=== PATIENT | male | born 1950 | race Caucasian/White ===

== ENCOUNTER 2022-06-01 16:03 | Inpatient (IN) | payer OTHER, MEDICARE, BC, SELFPAY ==
[2022-06-01] VITALS (8 sets, daily range): BP systolic 117–153; BP diastolic 63–98; PULSE 71–89; RESP 18–20; TEMP 36.3–37.4; O2SAT 95–97; BMI 27.6; BMI 28.3
--- NOTE | 2022-06-01 16:37 | CRLHL7_ITS ---
For Patients: As a result of the Cures Act, medical imaging exams and procedure reports are released immediately into your electronic medical record. You may view this report before your referring provider. If you have questions, please contact your health care provider. INDICATION: FALL HISTORY: Fall. COMPARISON: None. TECHNIQUE: AP radiograph of the pelvis, 2 views of the left hip. FINDINGS: There is an acute, subcapital, intracapsular fracture of the left proximal femur. No additional injury is identified. The symphysis pubis and superior/inferior pubic rami are intact. The right hip appears intact. Arcuate lines in the sacrum are intact. Pelvic phleboliths. No radiopaque foreign body. Normal bone mineralization. IMPRESSION: Acute, intracapsular, subcapital fracture of the left proximal femur. Dictated by Mango Pagan MD @ 06/01/2022 5:50:10 PM Dictated by: Mango Pagan MD @ 06/01/2022 17:50:18 (Electronically Signed)
--- NOTE | 2022-06-01 16:38 | ED_ITS ---
HPI - General Adult General Chief complaint: Hip Injury/Pain Stated complaint: Fell on Ice Time Seen by Provider: 06/01/22 16:31 History of Present Illness HPI narrative: This 72-year-old male slipped on ice and fell landing on his left hip. He has severe pain in his left hip that radiates into the groin. With great difficulty he was able to get up to a vehicle. He states that he did try to bear some weight on his left leg but it was very painful. He does not report any other injury. He denies having any headache, neck pain, or back pain. He does have some mild discomfort in his left shoulder. He is not on anticoagulants. He stated his last meal was 5 hours ago, at 11:45 a.m.. Related Data Home Medications Medication Instructions Recorded Confirmed fexofenadine 180 mg tablet mg 06/01/22 levothyroxine 100 mcg tablet mcg 06/01/22 omeprazole 20 mg capsule,delayed mg 06/01/22 release Allergies Allergy/AdvReac Type Severity Reaction Status Date / Time No Known Drug Allergies Allergy Verified 06/01/22 16:21 Review of Systems Status of ROS: Reports: 10 or more systems reviewed and unremarkable except as noted in History and below Narrative: Constitutional: No fevers, no weight gain or loss. Eyes: No discharge. No vision changes. HENT: No congestion, no sore throat, no ear pain. Cardiovascular: No chest pain, no palpitations. Respiratory: No shortness of breath, no wheezes, no cough. Gastrointestinal: No abdominal pain, no vomiting, no diarrhea. Genitourinary: No dysuria, no hematuria. Musculoskeletal: Left hip injury as described above. Skin: No rashes, no pruritis. Neurological: No dizziness, weakness, sensory change, speech change. Endo/Heme/Allergies: No bruising or bleeding. No polydipsia. Pysch: no suicidality, no anxiety, no insomnia. All other systems reviewed and are negative. PFSH PFSH Social History Smoking Status: Never smoker Do you use any of these nicotine containing products: None Second hand tobacco smoke exposure: No How often do you have a drink containing alcohol: 2-4 times a month How many standard drinks containing alcohol do you have on a typical day: 1 or 2 How often do you have six or more drinks on one occasion: Less than monthly AUDIT-C Alcohol total score: 3 Non-prescribed substance use: denies use service: No Exam Narrative: Exam Narrative: Constitutional: Well-developed, well-nourished, no acute distress. HEENT: Normocephalic, atraumatic. Neck: Normal range of motion. Nontender. Supple. Heart: Regular. No murmurs. Normal rate. Intact distal pulses. Lungs: Clear to auscultation. No chest discomfort. No wheezes, rhonchi, or rales. Abdomen: Normal bowel sounds. Nontender. No rebound tenderness. Genitalia: Deferred. Back: No midline tenderness. Normal range of motion. Extremities: The left leg is not shortened or or externally rotated. There is distinct severe pain with just slight log-rolling of the left leg. Skin: Intact. No rash. Warm. No erythema or pallor. Neurologic: No altered sensation. No weakness. Alert and oriented. Psychiatric: No suicidality. No anxiety or depression. No insomnia. Nursing notes and vitals signs are reviewed. Const: Vital Signs, click to edit/add: Vital Signs - 24 hr 06/01/22 16:22 Temperature 97.4 F L Pulse Rate [Right Pulse Oximeter] 80 Respiratory Rate 18 Blood Pressure [Ri ght Upper Arm] 153/98 H Pulse Oximetry 96 Oxygen Delivery Me thod Room Air Course Vital Signs Vital signs: Initial Vital Signs Temperature 97.4 F L 06/01/22 16:22 Temperature Source Temporal Artery Scan 06/01/22 16:22 Pulse Rate 80 06/01/22 16:22 Respiratory Rate 18 06/01/22 16:22 Blood Pressure 153/98 H 06/01/22 16:22 Blood Pressure Mean 116 06/01/22 16:22 Blood Pressure Position Sitting 06/01/22 16:22 Pulse Oximetry 96 06/01/22 16:22 Oxygen Delivery Method 06/01/22 16:22 Vital Signs Temperature 97.4 F L 06/01/22 16:22 Pulse Rate 80 06/01/22 16:22 Respiratory Rate 18 06/01/22 16:22 Blood Pressure 153/98 H 06/01/22 16:22 Pulse Oximetry 96 06/01/22 16:22 Oxygen Delivery Method 06/01/22 16:22 Temperature 97.4 F L 06/01/22 16:22 Pulse Rate 80 06/01/22 16:22 Respiratory Rate 18 06/01/22 16:22 Blood Pressure 153/98 H 06/01/22 16:22 Pulse Oximetry 96 06/01/22 16:22 Oxygen Delivery Method 06/01/22 16:22 Medical Decision Making MDM Narrative Medical decision making narrative: This patient comes in for an evaluation of his left hip from a fall that occurred just prior to arrival. An IV was established where he did receive Dilaudid 0.5 mg and Zofran 4 mg. X-ray imaging shows a fracture of the left hip. Chest x-ray and EKG for surgery planning returned with normal results. Patient received a 2nd dose of Dilaudid 0.5 mg. I did speak with the orthopedic physician's assistant to the dean account solutions analyst who states that they will surgically repair is hip tomorrow morning. I spoke with Dr. López about his admission into the hospital. At 6:20 p.m. he is accepted for admission by Dr. López. Lab Data Labs: Lab Results 06/01/22 06/01/22 Range/Units 16:25 16:25 WBC 5.84 (4.50-11.00) K/uL RBC 4.62 (4.30-5.90) m/uL Hgb 15.0 (13.5-17.5) gm/dL Hct 44.5 (37.0-53.0) % MCV 96 (80-100) fL MCH 33 (26-34) pg MCHC 34 (32-36) gm/dL RDW Coeff of Alyssa 11.8 (11.5-15.5) % Plt Count 236 (140-440) K/uL Neut % (Auto) 64.5 (42.0-72.0) % Lymph % (Auto) 25.3 (20-44) % [place] % (Auto) 6.8 (0.0-11.0) % Eos % (Auto) 1.7 (0.0-7.0) % Baso % (Auto) 0.3 (0.0-3.0) % Neut # (Auto) 3.76 (1.7-7.0) K/uL Lymph # (Auto) 1.48 (0.90-2.90) K/uL [place] # (Auto) 0.40 (0.00-0.90) K/UL Eos # (Auto) 0.10 (0.00-0.50) K/uL Baso # (Auto) 0.02 (0.00-0.30) K/uL Sodium 142 (135-149) mmol/L Potassium 4.0 (3.6-5.1) mmol/L Chloride 109 (96-114) mmol/L Carbon Dioxide 29 (20-32) mmol/L BUN 23 (7-30) mg/dL Creatinine 0.8 (0.5-1.5) mg/dL Estimated Creat Clear 72.16 Estimated GFR 95 ml/min Glucose 97 (60-115) mg/dL Calcium 8.8 (8.4-10.6) mg/dL Imaging Data XR L Hip: Radiologist's impression: Acute, intracapsular, subcapital fracture of the left proximal femur. Chest x-ray: Radiologist's impression: No acute cardiopulmonary findings. ECG Data Attestation: I personally reviewed and interpreted this ECG as follows: Interpretation: Normal sinus rhythm. Rate is 72 beats per minute. There are no ST or T-wave abnormalities. Discharge Plan Discharge Clinical Impression: Hip fracture Patient Disposition: Admitted As Inpatient Condition: Unchanged Prescriptions: No Action fexofenadine 180 mg tablet Label Comments: TAKE ONE TABLET BY MOUTH ONE TIME DAILY levothyroxine 100 mcg tablet Label Comments: TAKE ONE TABLET BY MOUTH ONE TIME DAILY omeprazole 20 mg capsule,delayed release(DR/EC) Label Comments: TAKE ONE CAPSULE BY MOUTH ONE TIME DAILY BEFORE MEALS Follow Up/Referrals: Spenser Bales MD [Primary Care Provider] -
[2022-06-01] MEDS: ONDANSETRON 2 MG/ML inj 4 MG IVP (16:44)
[2022-06-01 16:46] LABS: Basophils Absolute Auto 0.02 K/uL (0.00-0.30); Basophils Percent Auto 0.3 % (0.0-3.0); Eosinophils Percent Auto 1.7 % (0.0-7.0); Hematocrit 44.5 % (37.0-53.0); Immature Granulocytes Abs Auto 0.08 K/uL (0.00-0.30); Immature Granulocytes Pct Auto 1.4 %; Lymphocytes Absolute Auto 1.48 K/uL (0.90-2.90); Lymphocytes Percent Auto 25.3 % (20-44); Mean Corpuscular HGB Conc 34 gm/dL (32-36); Mean Corpuscular Hemoglobin 33 pg (26-34); Mean Corpuscular Volume 96 fL (80-100); Monocytes Percent Auto 6.8 % (0.0-11.0); Neutrophils Absolute Auto 3.76 K/uL (1.7-7.0); Neutrophils Percent Auto 64.5 % (42.0-72.0); Platelet Count* 236 K/uL (140-440); RDW Coefficient of Variation % 11.8 % (11.5-15.5); Red Blood Count 4.62 m/uL (4.30-5.90); White Blood Count* 5.84 K/uL (4.50-11.00)
[2022-06-01] MEDS: HYDROmorphone 0.5 mg/0.5 ml inj IVP ×2 (16:46→18:00)
[2022-06-01 16:54] LABS: Slide Review Reflex No
[2022-06-01 16:58] LABS: Chloride* 109 mmol/L (96-114); Sodium* 142 mmol/L (135-149)
[2022-06-01 17:01] LABS: Creatinine* 0.8 mg/dL (0.5-1.5); Est. Creatinine Clearance* 72.16; Estimated Glomerular Filt Rate 95 ml/min
[2022-06-01 17:02] LABS: Blood Urea Nitrogen* 23 mg/dL (7-30); Calcium* 8.8 mg/dL (8.4-10.6); Carbon Dioxide* 29 mmol/L (20-32); Glucose* 97 mg/dL (60-115)
--- NOTE | 2022-06-01 17:34 | CRLHL7_ITS ---
For Patients: As a result of the Cures Act, medical imaging exams and procedure reports are released immediately into your electronic medical record. You may view this report before your referring provider. If you have questions, please contact your health care provider. INDICATION: Fall. TECHNIQUE: Portable AP chest radiograph. COMPARISON: None available. FINDINGS: No focal pulmonary opacity, pneumothorax, or pleural effusion. Normal cardiac size. Mild thoracic aortic tortuosity. IMPRESSION: No acute cardiopulmonary findings. Dictated by Demetri Dunbar MD @ 06/01/2022 5:57:34 PM Dictated by: Demetri Dunbar MD @ 06/01/2022 17:57:37 (Electronically Signed)
--- NOTE | 2022-06-01 18:48 | ED.NURSE ---
report was given to tc marvin. will go to 251 via cart. will await covid result.
[2022-06-01] MEDS: HYDROmorphone 0.5 mg/0.5 ml inj 1 MG IVP (19:18)
[2022-06-01 19:21] LABS: SARS PCR* Negative SARS-CoV-2 (Negative)
--- NOTE | 2022-06-01 19:27 | ED.NURSE ---
Pt brought to [facility] by [facility] via cart with belongings. Pain controlled at this time.
--- NOTE | 2022-06-01 19:37 | W.PC.EDHO ---
Primary Language: Preferred Language: Orientation Status: [] Alert & Oriented [] Slight Confusion [] Known Dx Dementia Transfers By: [] Assist of 1 [] Assist of 2 [] Lift Active Medications Generic Name Dose Route Start Last Admin Trade Name Freq PRN Reason Stop Dose Admin Hydromorphone HCl 0.5 mg 06/01/22 17:56 06/01/22 18:00 Hydromorphone 0.5 Mg/0.5 Ml Inj IVP 06/01/22 17:57 0.5 mg ONCE ONE Administration Hydromorphone HCl 1 mg 06/01/22 19:11 06/01/22 19:18 Hydromorphone 0.5 Mg/0.5 Ml Inj IVP 06/01/22 19:12 1 mg ONCE ONE Administration Discontinued Medications Generic Name Dose Route Start Last Admin Trade Name Freq PRN Reason Stop Dose Admin Hydromorphone HCl 0.5 mg 06/01/22 16:36 06/01/22 16:46 Hydromorphone 0.5 Mg/0.5 Ml Inj IVP 06/01/22 16:37 0.5 mg ONCE ONE Administration Ondansetron HCl 4 mg 06/01/22 16:36 06/01/22 16:44 Ondansetron 2 Mg/Ml Inj IVP 06/01/22 16:37 4 mg ONCE ONE Administration Description of Symptoms ED Triage Present Problem pt fell in parking lot on the way out to his Description vehicle at [facility], was able to get himself into his truck and drive here, pain in left buttock down to below left knee, did hit his head but denies loc, no thinners ED Triage Date of Onset of 06/01/22 Symptoms Pain Pain Description [Left Leg] Sharp Pain Intensity [Left Leg] 10 Pain Intensity 8 Pain Intensity 8 Pain Intensity 8 Pain Intensity 8 Pain Intensity 8 Pain Scale Used [Left Leg] Numeric (1 - 10) Pain Scale Used Numeric (1 - 10) Pain Scale Used Numeric (1 - 10) IV Insertion/Site Date of IV Line Insertion [ 06/01/22 Left Antecubital] Oxygen Administration Pulse Oximetry 97 Pulse Oximetry 96 Pulse Oximetry 95 Pulse Oximetry 96 Pulse Oximetry 95 Pulse Oximetry 97 Pulse Oximetry 96 Oxygen Delivery Method Room Air Oxygen Delivery Method Room Air Oxygen Delivery Method Room Air Oxygen Delivery Method Room Air Oxygen Delivery Method Room Air Cardiac Monitoring EKG Method 12 Lead
--- NOTE | 2022-06-01 21:59 | PM.IMHP1 ---
Hospitalist- H&P: HPI History of Present Illness Time Seen by Provider: 21:30 Date Seen: 06/01/22 Chief complaint: Left hip/groin pain status post fall on ice Narrative: Sergio Reyes is a 72 year old man presents for assessment of left hip and groin pain status post fall on ice today. After fall was able to get up into a vehicle. It was excruciatingly painful. Pain worse with weight-bearing. No other injury. No loss of consciousness. In the [facility] an x-ray of the pelvis and left hip demonstrates an acute intracapsular subcapital fracture of the left proximal femur. Discussions were held with the orthopedic surgery staff on-call. They intend on performing a consultation with him tomorrow morning and likely bring him to the operating room with the patient is agreeable. As such she is admitted to the hospital for pain management and preparation for surgery. Review of Systems Status of ROS: Reports: 10 or more systems reviewed and unremarkable except as noted in History and below Narrative: Generally healthy. Active. No limitations. Denies chest heaviness, pressure, tightness, or pain. Denies dyspnea at rest, paroxysmal nocturnal dyspnea, orthopnea. Denies dyspnea with exertion. Denies syncope or near-syncope. Denies palpitations or fluttering. Denies dependent edema. Denies nausea or vomiting. Denies abdominal pain. Bowel and bladder habits are satisfactory. No concerns. Denies dysuria, urgency, frequency, hematuria. Denies diarrhea or constipation. No focal motor neurologic deficits. Independent in all activities. No fevers, rigors, diaphoresis. Denies polyuria, polydipsia, polyphagia. Denies night sweats. Denies weight loss. Denies weight gain. Denies heat or cold intolerance. No recent major travel, or any other trauma or injury aside from what is specified above. Denies blood loss of any sort. Has tolerated multiple surgical procedures in the past without any complications. No history of venous thromboembolism. No bleeding dyscrasias. Denies family history of the same. Requests full resuscitation in the event of cardiopulmonary demise. Designates his as his primary power of bowl sander should that be required. Dr. Spenser Bales is his primary care physician. [facility] Medical History (Updated 06/01/22 @ 22:11 by Gael López MD) Adenomatous colon polyp Gomez's esophagus Benign prostatic hyperplasia Essential hypertension Gastroesophageal reflux disease Herniation of intervertebral disc between L4 and L5 Herniation of intervertebral disc between L5 and S1 Migraine Mixed hyperlipidemia Muscle spasm Prediabetes Primary hypothyroidism Seasonal allergies Surgical History History of colonoscopy History of esophagogastroduodenoscopy (EGD) History of left inguinal hernia repair History of umbilical hernia repair Status post appendectomy Status post bilateral cataract extraction Status post laminectomy Status post Mohs surgery Status post right rotator cuff repair Status post transurethral resection of prostate Family History Mother CHF (congestive heart failure) Grandfather Diabetes Grandmother Diabetes Social History Smoking Status: Never smoker Do you use any of these nicotine containing products: None Second hand tobacco smoke exposure: No How often do you have a drink containing alcohol: 2-4 times a month How many standard drinks containing alcohol do you have on a typical day: 1 or 2 How often do you have six or more drinks on one occasion: Less than monthly AUDIT-C Alcohol total score: 3 Non-prescribed substance use: denies use service: No Meds Home Medications and Allergies Home Medications Medication Instructions Recorded Confirmed Type fexofenadine 180 mg tablet mg 06/01/22 History levothyroxine 100 mcg tablet mcg 06/01/22 History omeprazole 20 mg capsule,delayed mg 06/01/22 History release Allergies Allergy/AdvReac Type Severity Reaction Status Date / Time No Known Drug Allergies Allergy Verified 06/01/22 16:21 Exam Narrative: Exam Narrative: Appears uncomfortable. Cooperative and friendly. Articulate. Mood and affect are congruent. Alert, oriented to self, place, time, situation. Vision and hearing are grossly normal. Midline nasal septum. Dentition in good repair. Buccal mucosa is moist. Neck is supple. Midline trachea. Normal thyroid. No lymphedema. Lungs are clear to auscultation without wheezing, rhonchi, or rales. No CVA tenderness. Heart tones with regular rhythm, normal S1-S2, without murmur, gallop, or rub. Abdomen with active bowel sounds, soft, nontender. Extremities without edema. Good capillary refill upper and lower extremities. No obvious shortening or rotation of affected left lower extremity compared to the right. Skin is warm, dry, intact. Const: Vital Signs, click to edit/add: Vital Signs - 24 hr 06/01/22 16:22 06/01/22 16:40 06/01/22 17:00 Temperature 97.4 F L Pulse Rate [Right Pulse Oximeter] 80 72 75 Respiratory Rate 18 Blood Pressure [Ri ght Upper Arm] 153/98 H 139/95 H 122/83 Pulse Oximetry 96 97 95 Oxygen Delivery Me thod Room Air Room Air 06/01/22 19:00 06/01/22 18:03 06/01/22 18:30 Temperature Pulse Rate [Right Pulse Oximeter] 78 74 71 Respiratory Rate Blood Pressure [Ri ght Upper Arm] 136/83 131/79 Pulse Oximetry 96 96 95 Oxygen Delivery Tx thod Room Air Room Air 06/01/22 19:00 Temperature Pulse Rate [Right Pulse Oximeter] 87 Respiratory Rate Blood Pressure [Ri ght Upper Arm] 117/90 H Pulse Oximetry 97 Oxygen Delivery Tx thod Room Air Hospitalist - H&P: Result Labs Labs: Short CBC 06/01/22 Range/Units 16:25 WBC 5.84 (4.50-11.00) K/uL Hgb 15.0 (13.5-17.5) gm/dL Hct 44.5 (37.0-53.0) % Plt Count 236 (140-440) K/uL BMP 06/01/22 16:25 Sodium 142 Potassium 4.0 Chloride 109 Carbon Dioxide 29 BUN 23 Creatinine 0.8 Glucose 97 Calcium 8.8 ECG Attestation: I personally reviewed and interpreted this ECG as follows: ECG interpretation date: 06/01/22 ECG interpretation time: 21:30 Prior ECG tracings: not available for review Interpretation: Normal sinus rhythm. No obvious ischemia or infarction pattern. Imaging X-ray of pelvis and left hip: Attestation: I have reviewed the pertinent imaging results. Radiologist's impression: Acute, intracapsular, subcapital fracture of the left proximal femur. Assessment and Plan Assessment and plan (1) Hip fracture: Problem comment: 06/01/2022: Acute, intracapsular, subcapital fracture of the left proximal femur Status: Acute (2) Muscle spasm: Status: Acute (3) Gastroesophageal reflux disease: Status: Acute (4) Gomez's esophagus: Status: Acute Plan 1. Reviewed impression with patient and his . Answered their questions. 2. NPO after midnight. Orthopedic surgery consultation tomorrow morning. I anticipate surgical repair tomorrow. 3. Analgesia and antiemetics as needed. 4. Maintenance IV fluids after midnight tonight. 5. Recheck labs in the morning. 6. No medical contraindication for surgery. 7. Mechanical venous thromboembolism prophylaxis preoperatively. Postoperatively will benefit from pharmacologic venous thromboembolism prophylaxis. 8. Perioperative antibiotic prophylaxis per Orthopedic surgery. 9. Physical and occupational therapy consultation to assess and treat. 10. Continue with other supportive medications. 11. Consider osteoporosis assessment and management in the outpatient setting with his primary care physician. 12. Patient and agreeable to above stated plans and recommendations.
[2022-06-01] MEDS: ACETAMINOPHEN 325 MG TABLET 650 MG PO (22:15)
[2022-06-01] MEDS: MORPHINE 4 MG/ML INJ IVP (22:16)
[2022-06-01] MEDS: OXYCODONE 5 MG TABLET PO (22:16)
[2022-06-01] MEDS: LACTATED RINGERS 1000 ML 1,000 ML 75 ML IV (23:05)
--- NOTE | 2022-06-01 23:30 | PC.NURSE ---
Patient to floor at 1930. Pleasant and cooperative. Christine at bedside and supportive. PRN medication for pain control. Tylenol administered for headache. NPO after midnight for surgery in the morning. Tolerating bedrest. Denies N/V, SOB, chest pain.
[2022-06-02] VITALS (34 sets, daily range): BP systolic 103–158; BP diastolic 42–96; PULSE 59–80; RESP 16–20; TEMP 36.2–37.2; O2SAT 81–100
[2022-06-02 00:30] LABS: Appearance Urine Cloudy (Clear); Bilirubin Urine Negative (Negative); Blood Urine 3+ (Negative); Color Urine Yellow (Yellow); Glucose Urine Negative (Negative); Ketones Urine Negative (Negative); Leukocyte Esterase Urine Negative (Negative); Nitrite Urine Negative (Negative); Protein Urine 1+ (Negative); Urobilinogen Urine 0.2 (0.2-1.0)
[2022-06-02 00:37] LABS: Bacteria Urine Few; RBC Urine 25-50 (0-2); Squamous Epithelial Cell Urine Few (None-Few)
[2022-06-02] MEDS: OXYCODONE 5 MG TABLET PO ×5 (03:40→21:10)
[2022-06-02] MEDS: OMEPRAZOLE 20 MG CAPSULE DR PO (06:46)
[2022-06-02] MEDS: LEVOTHYROXINE 100 MCG TABLET PO (06:46)
[2022-06-02 06:56] LABS: HCO3 VBG 29 mmol/L (21-28); Lactate* 0.7 mmol/L (0.5-1.9); PCO2 VBG 44 mmHG (40-50); PO2 VBG 38.3 mmHG (25-47); pH VBG 7.421 (7.32-7.43)
[2022-06-02 07:04] LABS: Hematocrit 40.4 % (37.0-53.0); Hemoglobin* 13.7 gm/dL (13.5-17.5); Mean Corpuscular HGB Conc 34 gm/dL (32-36); Mean Corpuscular Hemoglobin 33 pg (26-34); Mean Corpuscular Volume 96 fL (80-100); Platelet Count* 189 K/uL (140-440); White Blood Count* 9.03 K/uL (4.50-11.00)
[2022-06-02 07:05] LABS: Slide Review Reflex No
[2022-06-02 07:18] LABS: Chloride* 107 mmol/L (96-114); Sodium* 137 mmol/L (135-149)
[2022-06-02 07:19] LABS: Potassium* 4.1 mmol/L (3.6-5.1)
[2022-06-02 07:21] LABS: Carbon Dioxide* 28 mmol/L (20-32); Creatinine* 0.8 mg/dL (0.5-1.5); Est. Creatinine Clearance* 74.37; Estimated Glomerular Filt Rate 95 ml/min
[2022-06-02 07:22] LABS: Blood Urea Nitrogen* 23 mg/dL (7-30); Calcium* 8.5 mg/dL (8.4-10.6); Glucose* 106 mg/dL (60-115)
--- NOTE | 2022-06-02 07:27 | PC.NURSE ---
23-: pleasant and cooperative. Pt in bed throughout shift. c/o pain /, Oxy given. NPO since midnight. Assisted Nata SOTO with delacruz placement. Sm blood clots noted in urine. Delacruz patent and draining.
[2022-06-02] MEDS: ONDANSETRON 2 MG/ML inj 4 MG IVP (08:01)
--- NOTE | 2022-06-02 08:17 | CRLHL7_ITS ---
For Patients: As a result of the Century Cures Act, medical imaging exams and procedure reports are released immediately into your electronic medical record. You may view this report before your referring provider. If you have questions, please contact your health care provider. INDICATION: Injury COMPARISON: July 20, 2012 TECHNIQUE: CT examination of the head was performed as axial sections without intravenous contrast. Images were obtained from the vertex of the skull through the skull base. Please note that all CT scans at this facility use dose modulation, iterative reconstruction, and/or weight-based dosing when appropriate to reduce radiation dose to as low as reasonably achievable. FINDINGS: The brain shows no sign of mass lesion, mass effect, hemorrhage, or edema. The ventricles and sulci are normal in appearance for the patient`s age. The visualized portions of the orbits are normal in appearance. The osseous structures are normal in their appearance with no sign of abnormality in the skull base or calvarium. IMPRESSION: No acute intracranial posttraumatic finding. Please note that all CT scans at this facility use dose modulation, iterative reconstruction, and/or weight-based dosing when appropriate to reduce radiation dose to as low as reasonably achievable. Dictated by Madan Snyder MD @ 06/02/2022 8:56:20 AM (Electronically Signed)
--- NOTE | 2022-06-02 10:45 | CRLHL7_ITS ---
For Patients: As a result of the Cures Act, medical imaging exams and procedure reports are released immediately into your electronic medical record. You may view this report before your referring provider. If you have questions, please contact your health care provider. INDICATION: Postop left hip. COMPARISON: Pelvis and left hip June 01, 2022. TECHNIQUE: Intraoperative fluoroscopic spot films left hip. FINDINGS: Internal fixation of the fracture of the left femoral neck with 3 Saldana pins. Dictated by Ez Tracy MD @ 06/02/2022 12:07:18 PM (Electronically Signed)
--- NOTE | 2022-06-02 12:04 | P.ORCN_ITS ---
History of Present Illness HPI Date Seen: 06/02/22 Requesting physician: Gael López Chief complaint: Left hip/groin pain status post fall on ice Narrative: The patient is a 72-year-old community ambulator without assist. He fell sustaining a minimally displaced left femoral neck fracture. He has never injured this hip or had surgery previously. He does not have diabetes, does not smoke cigarettes and is not on blood thinners. Review of Systems Narrative: The patient denies: Fever, night sweats, shaking chills, nausea, vomiting, diarrhea, chest pain, chest pressure, shortness of breath, no rash, no change in hearing or vision, no issues with bleeding or clotting PFSH [facility] Medical History Adenomatous colon polyp Gomez's esophagus Benign prostatic hyperplasia Essential hypertension Gastroesophageal reflux disease Herniation of intervertebral disc between L4 and L5 Herniation of intervertebral disc between L5 and S1 Migraine Mixed hyperlipidemia Muscle spasm Prediabetes Primary hypothyroidism Seasonal allergies Surgical History History of colonoscopy History of esophagogastroduodenoscopy (EGD) History of left inguinal hernia repair History of umbilical hernia repair Status post appendectomy Status post bilateral cataract extraction Status post laminectomy Status post Mohs surgery Status post right rotator cuff repair Status post transurethral resection of prostate Family History Mother CHF (congestive heart failure) Grandfather Diabetes Grandmother Diabetes Social History Highest level of school completed/degree received: some college, no degree Smoking Status: Never smoker Do you use any of these nicotine containing products: None Second hand tobacco smoke exposure: No How often do you have a drink containing alcohol: 2-4 times a month Alcohol type: hard liquor How many standard drinks containing alcohol do you have on a typical day: 1 or 2 How often do you have six or more drinks on one occasion: Never AUDIT-C Alcohol total score: 2 Non-prescribed substance use: denies use Caffeine: No service: No Meds Home Medications and Allergies Home Medications Medication Instructions Recorded Confirmed Type fexofenadine 180 mg tablet 180 mg PO DAILY 06/01/22 06/02/22 History levothyroxine 100 mcg tablet 100 mcg PO DAILY 06/01/22 06/02/22 History omeprazole 20 mg capsule,delayed 20 mg PO DAILY 06/01/22 06/02/22 History release tizanidine 4 mg tablet 4 mg PO Q8H PRN 06/02/22 06/02/22 History Allergies Allergy/AdvReac Type Severity Reaction Status Date / Time No Known Drug Allergies Allergy Verified 06/01/22 16:21 Ortho Exam Narrative Exam Narrative: The patient is examined supine in the hospital bed. The skin about the hip is intact, no surgical scars no ecchymosis. CMS to the foot is normal. Const Vital Signs, click to edit/add: Vital Signs - 24 hr 06/01/22 16:22 06/01/22 16:40 06/01/22 17:00 Temperature 97.4 F L Pulse Rate [Left] Pulse Rate [Pulse Oximeter] Pulse Rate [Right Pulse Oximeter] 80 72 75 Respiratory Rate 18 Blood Pressure [Right Arm] Blood Pressure [Right Upper Arm] 153/98 H 139/95 H 122/83 Pulse Oximetry 96 97 95 Oxygen Delivery Method Room Air Room Air 06/01/22 19:00 06/01/22 18:03 06/01/22 18:30 Temperature Pulse Rate [Left] Pulse Rate [Pulse Oximeter] Pulse Rate [Right Pulse Oximeter] 78 74 71 Respiratory Rate Blood Pressure [Right Arm] Blood Pressure [Right Upper Arm] 136/83 131/79 Pulse Oximetry 96 96 95 Oxygen Delivery Method Room Air Room Air 06/01/22 19:00 06/01/22 19:42 06/01/22 19:42 Temperature 98.9 F Pulse Rate [Left] 89 Pulse Rate [Pulse Oximeter] Pulse Rate [Right Pulse Oximeter] 87 Respiratory Rate 20 20 Blood Pressure [Right Arm] 129/63 Blood Pressure [Right Upper Arm] 117/90 H Pulse Oximetry 97 95 95 Oxygen Delivery Method Room Air Room Air Room Air 06/01/22 23:00 06/01/22 23:00 06/01/22 23:00 Temperature 99.3 F Pulse Rate [Left] 85 Pulse Rate [Pulse Oximeter] 85 Pulse Rate [Right Pulse Oximeter] Respiratory Rate 20 20 20 Blood Pressure [Right Arm] 121/73 Blood Pressure [Right Upper Arm] Pulse Oximetry 95 95 Oxygen Delivery Method Room Air Room Air 06/02/22 03:00 06/02/22 07:52 06/02/22 08:04 Temperature 97.9 F 98.9 F Pulse Rate [Left] 77 Pulse Rate [Pulse Oximeter] 66 77 Pulse Rate [Right Pulse Oximeter] Respiratory Rate 20 16 Blood Pressure [Right Arm] 120/81 127/68 Blood Pressure [Right Upper Arm] Pulse Oximetry 96 95 95 Oxygen Delivery Method Room Air Room Air Room Air Results Labs Labs: Laboratory Results - last 48 hr 06/01/22 06/01/22 06/01/22 16:25 16:25 18:06 WBC 5.84 RBC 4.62 Hgb 15.0 Hct 44.5 MCV 96 MCH 33 MCHC 34 RDW Coeff of Alyssa 11.8 Plt Count 236 Neut % (Auto) 64.5 Lymph % (Auto) 25.3 [place] % (Auto) 6.8 Eos % (Auto) 1.7 Baso % (Auto) 0.3 Neut # (Auto) 3.76 Lymph # (Auto) 1.48 [place] # (Auto) 0.40 Eos # (Auto) 0.10 Baso # (Auto) 0.02 VBG pH VBG pCO2 VBG pO2 VBG HCO3 Sodium 142 Potassium 4.0 Chloride 109 Carbon Dioxide 29 BUN 23 Creatinine 0.8 Estimated Creat Clear 72.16 Estimated GFR 95 Glucose 97 Lactate Calcium 8.8 Urine Color Urine Appearance Urine pH Ur Specific [place] Urine Protein Urine Glucose (UA) Urine Ketones Urine Blood Urine Nitrite Urine Bilirubin Urine Urobilinogen Ur Leukocyte Esterase Urine RBC Urine WBC Ur Squamous Epith Cells Urine Bacteria SARS-CoV-2 (PCR) Negative SARS-CoV-2 06/02/22 06/02/22 06/02/22 00:15 05:49 05:49 WBC 9.03 RBC 4.20 L Hgb 13.7 Hct 40.4 MCV 96 MCH 33 MCHC 34 RDW Coeff of Alyssa Plt Count 189 Neut % (Auto) Lymph % (Auto) [place] % (Auto) Eos % (Auto) Baso % (Auto) Neut # (Auto) Lymph # (Auto) [place] # (Auto) Eos # (Auto) Baso # (Auto) VBG pH VBG pCO2 VBG pO2 VBG HCO3 Sodium 137 Potassium 4.1 Chloride 107 Carbon Dioxide 28 BUN 23 Creatinine 0.8 Estimated Creat Clear 74.37 Estimated GFR 95 Glucose 106 Lactate Calcium 8.5 Urine Color Yellow Urine Appearance Cloudy A Urine pH 7.0 Ur Specific [place] 1.020 Urine Protein 1+ A Urine Glucose (UA) Negative Urine Ketones Negative Urine Blood 3+ A Urine Nitrite Negative Urine Bilirubin Negative Urine Urobilinogen 0.2 Ur Leukocyte Esterase Negative Urine RBC 25-50 A Urine WBC 2-5 Ur Squamous Epith Cells Few Urine Bacteria Few A SARS-CoV-2 (PCR) 06/02/22 05:49 WBC RBC Hgb Hct MCV MCH MCHC RDW Coeff of Alyssa Plt Count Neut % (Auto) Lymph % (Auto) [place] % (Auto) Eos % (Auto) Baso % (Auto) Neut # (Auto) Lymph # (Auto) [place] # (Auto) Eos # (Auto) Baso # (Auto) VBG pH 7.421 VBG pCO2 44 VBG pO2 38.3 VBG HCO3 29 H Sodium Potassium Chloride Carbon Dioxide BUN Creatinine Estimated Creat Clear Estimated GFR Glucose Lactate 0.7 Calcium Urine Color Urine Appearance Urine pH Ur Specific [place] Urine Protein Urine Glucose (UA) Urine Ketones Urine Blood Urine Nitrite Urine Bilirubin Urine Urobilinogen Ur Leukocyte Esterase Urine RBC Urine WBC Ur Squamous Epith Cells Urine Bacteria SARS-CoV-2 (PCR) Diagnostic results Additional Comments: An AP pelvis, AP and cross-table lateral view of the left hip show a minimally displaced left femoral neck fracture. There is no obvious pathologic lesion, no pre-existing hip joint arthritis. Assessment and Plan Assessment and plan (1) Hip fracture: Problem comment: 06/01/2022: Acute, intracapsular, subcapital fracture of the left proximal femur Status: Acute Total time spent: Total time spent is greater than 50% in coordination of care (as documented) at patient's floor/unit and/or counseling patient: (2) Muscle spasm: Status: Acute Total time spent: Total time spent is greater than 50% in coordination of care (as documented) at patient's floor/unit and/or counseling patient: (3) Gastroesophageal reflux disease: Status: Acute Total time spent: Total time spent is greater than 50% in coordination of care (as documented) at patient's floor/unit and/or counseling patient: (4) Gomez's esophagus: Status: Acute Total time spent: Total time spent is greater than 50% in coordination of care (as documented) at patient's floor/unit and/or counseling patient: Plan Assessment: Minimally displaced left femoral neck fracture Plan: I told the patient that I think his injury is best treated with reduction and cannulated screw fixation. He has been medically cleared for surgery, therefore we will plan to take him to the operating room today.
--- NOTE | 2022-06-02 12:04 | P.ORPRC_ITS ---
Procedure Note Date of procedure: 06/02/22 Procedure: PREOPERATIVE DIAGNOSIS: Left hip nondisplaced femoral neck fracture POSTOPERATIVE DIAGNOSIS: Left hip nondisplaced femoral neck fracture NAME OF OPERATION: Left hip fracture ORIF SURGEON: Asif Almaguer MD FURNITURE SALES CONSULTANT: Nicki Coley PA-C IMPLANTS: Cannulated screws x3 ANESTHESIA: Spinal ESTIMATED BLOOD LOSS: 50 mL COMPLICATIONS: None SPECIMENS: None DRAINS: None PREOPERATIVE ANTIBIOTICS: Ancef 2 g INDICATIONS: The patient is a 72-year-old fell, sustaining a minimally displaced left femoral neck fracture. They were admitted for workup and care. They have been medically cleared for surgery. The risks, benefits and expected outcomes were discussed in detail. These included but were not limited to: Infection, bleeding, injury to blood vessel or nerve, venous thromboembolism. All questions were answered to their satisfaction. Use of an regulatory affairs assistant was necessary for patient positioning and safety, soft tissue retraction and closure, dressing application, and transfer of the patient to and from the hospital bed to the fracture table. PROCEDURE: Spinal anesthesia was administered. The patient was placed supine on the fracture table. The lower extremity was prepped and draped in the usual sterile fashion. Guide pin placement was estimated with the image intensifier. A lateral incision was made over the flare of the greater trochanter. Subcutaneous dissection was made with the Benson elevator to the lateral cortex of the femur. The bone hook was placed over the anterior aspect of the femoral neck. It was engaged along the calcar and lateral force was placed on the distal fragment. This allowed an anatomic reduction. Our starting point was identified with the image intensifier. An inferior guide pin was placed on the AP view, center of the femoral head on the lateral view. Its placement was confirmed on both views. Using a freehand technique, we placed an anterior pin in the superior position. Finally, we placed a 3rd guide pin posteriorly in the superior position. Lengths were measured. The lateral cortex was penetrated with the cannulated drill. We placed the inferior screw 1st, using a washer. This had excellent purchase. We placed the anterior, superior screw next with a washer. Again, this had excellent purchase. Finally, we placed the posterior, superior screw, without a washer. This had poor purchase, despite changing lengths. This construct was imaged with the C-arm and was felt to be well placed. The fracture fragments moved as a single unit with fluoroscopic rotation on both AP and lateral views. The wound was irrigated with normal saline. The IT band was closed with an 0 Vicryl in an interrupted [id number] fashion. The subcutaneous tissues were reapproximated with a 2-0 Vicryl. Skin was closed with a running 3-0 Monocryl in a subcuticular fashion and glue. A dry dressing was applied. Sponge and needle counts were correct x2. The patient tolerated the procedure well. There were no apparent complications. They were carefully transferred to the hospital bed and taken to the postanesthesia care unit in satisfactory condition. PLAN: The patient will be mobilized with physical therapy. They will be toe- touch weight-bearing on the left lower extremity. Sh Rel toe will be used for DVT prophylaxis. They will be discharged to home once medically appropriate.
--- NOTE | 2022-06-02 12:31 | W.ANESCHARGE ---
Anesthesia Charges Start Date/Time Anesthesia Start Date: 06/02/22 Anesthesia Start Time: 10:13 Stop Date/Time Anesthesia Stop Date: 06/02/22 Anesthesia Stop Time: 12:27 Summary Emergency: Yes Extremes of Age: Over 71-CPT [id number]
--- NOTE | 2022-06-02 13:00 | PC.NURSE ---
Patient returned from OR with chest discomfort. EKG completed. MD notified. Troponin ordered STAT. Will continue to monitor. Discomfort and tightness seemed to let up after 10 min of being back.
--- NOTE | 2022-06-02 13:08 | W.PM.NB ---
Nerve Block Nerve Block Time Seen by Provider: 10:00 Date Seen: 06/02/22 Type of block requested by surgeon for post-operative analgesia: NAE/LFCN Side: left Time out performed: Yes Verification of patient name: Yes Verification of date of : Yes Site marking: site marked Name of person performing procedure: Cesar Mancera Continuous monitoring Was continuous monitoring of O2 sat, B/P, monitoring specialist, recorded every 15 minutes?: Yes Procedure Checklist: sterile prep, needles and gloves Ultrasound guided. Images saved: Yes Medications given in 5ml increments after negative aspiration: Ropivicaine %: 0.5 mL: 30 Needle gauge: 20 Decadron (mg): 10 Precedex (mcg): 25 Patient tolerated procedure well: Yes Additional comments: Injected in 5ml increments after negative aspiration. Block Charges Block Charge (with Pro Fee): Other Periph Nerve Block Use of Ultrasound Machine for Block: Yes- US Guidance/pain block
[2022-06-02 14:27] LABS: Troponin I* 0.01 ng/mL (0.01-0.04)
--- NOTE | 2022-06-02 14:42 | PC.NURSE ---
end of shift note: Patient complained of head and left shoulder pain prior to being seen by ortho. MD ordered STAT head CT and this was reassuring. No signs of fracture in shoulder. Patient went to OR today around 1045. Returned to floor at 1300. Hip/Femur fracture was fixed in OR. Received a block post surgery in OR room. Patient did complain of chest discomfort and tightness when he got back to floor. MD was notified and EKG and troponin were completed. All was reassuring and symptoms resolved after 10 min. Has one incision on left thigh and this is dry and intact. Ice pack to incision. Patient is still unable to move left lower extremity. Does have some feeling it in. Denies pain. Lung sounds clear. Bowel sounds active. Denies nausea. TEDs and SCDs present. PIV intact and patent. LR running at 75ml/hr. Alert and oriented. Will be non weight bearing on left leg for 6 weeks. Patient aware. Tolerating a regular diet.
--- NOTE | 2022-06-02 15:53 | P.IMPN_ITS ---
Progress Note: A&P Assessment and plan (1) Hip fracture: Problem details: - 06/01/22: Acute, intracapsular, subcapital fracture of the left proximal femur - s/p ORIF 06/02/22 Status: Acute (2) Gastroesophageal reflux disease: Problem details: - continue home PPI Status: Acute (3) Gomez's esophagus: Status: Acute Plan - pain management and ppx per Orthopedic surgery team - continue home medications for comorbidities Subjective Date Seen: 06/02/22 Interval history: Jong is a pleasant 72-year-old male who was admitted to the hospital on 06/01 for left hip fracture after a mechanical fall leaving work yesterday. This morning, he notes a mild headache preoperatively. He did hit his head and is on sure if he lost consciousness. We obtained a head CT prior to his hip surgery, this was negative for acute findings. There were no anesthetic or surgical complications during patient's L hip ORIF. Upon arrival to the floor postoperatively, he had a self-limited episode of left-sided chest pain. EKG revealed no acute findings and troponin was negative. Exam Narrative: Exam Narrative: GEN: Alert and oriented, nontoxic in appearance HEENT: Normal external ears, PERRL and EOMIs bilaterally, no scleral icterus CV: RRR, No concerning murmurs, rubs, or gallops R: LCTA bilaterally without concerning wheezing, rales, or rhonchi, air movement adequate Skin: No concerning skin lesions or rashes on exposed skin Neuro: No focal deficits, no resting tremor, no facial droop, no pronator drift Psych: Appropriate Const: Vital Signs, click to edit/add: Vital Signs - 24 hr 06/01/22 16:22 06/01/22 16:40 06/01/22 17:00 Temperature 97.4 F L Pulse Rate Pulse Rate [Left] Pulse Rate [Pulse Oximeter] Pulse Rate [Right Pulse Oximeter] 80 72 75 Respiratory Rate 18 Blood Pressure Blood Pressure [Ri ght Arm] Blood Pressure [Ri ght Upper Arm] 153/98 H 139/95 H 122/83 Pulse Oximetry 96 97 95 Oxygen Delivery Me thod Room Air Room Air Oxygen Flow Rate 06/01/22 19:00 06/01/22 18:03 06/01/22 18:30 Temperature Pulse Rate Pulse Rate [Left] Pulse Rate [Pulse Oximeter] Pulse Rate [Right Pulse Oximeter] 78 74 71 Respiratory Rate Blood Pressure Blood Pressure [Ri ght Arm] Blood Pressure [Ri ght Upper Arm] 136/83 131/79 Pulse Oximetry 96 96 95 Oxygen Delivery Me thod Room Air Room Air Oxygen Flow Rate 06/01/22 19:00 06/01/22 19:42 06/01/22 19:42 Temperature 98.9 F Pulse Rate Pulse Rate [Left] 89 Pulse Rate [Pulse Oximeter] Pulse Rate [Right Pulse Oximeter] 87 Respiratory Rate 20 20 Blood Pressure Blood Pressure [Ri ght Arm] 129/63 Blood Pressure [Ri ght Upper Arm] 117/90 H Pulse Oximetry 97 95 95 Oxygen Delivery Me thod Room Air Room Air Room Air Oxygen Flow Rate 06/01/22 23:00 06/01/22 23:00 06/01/22 23:00 Temperature 99.3 F Pulse Rate Pulse Rate [Left] 85 Pulse Rate [Pulse Oximeter] 85 Pulse Rate [Right Pulse Oximeter] Respiratory Rate 20 20 20 Blood Pressure Blood Pressure [Ri ght Arm] 121/73 Blood Pressure [Ri ght Upper Arm] Pulse Oximetry 95 95 Oxygen Delivery Me thod Room Air Room Air Oxygen Flow Rate 06/02/22 03:00 06/02/22 07:52 06/02/22 08:04 Temperature 97.9 F 98.9 F Pulse Rate Pulse Rate [Left] 77 Pulse Rate [Pulse Oximeter] 66 77 Pulse Rate [Right Pulse Oximeter] Respiratory Rate 20 16 Blood Pressure Blood Pressure [Ri ght Arm] 120/81 127/68 Blood Pressure [Ri ght Upper Arm] Pulse Oximetry 96 95 95 Oxygen Delivery Me thod Room Air Room Air Room Air Oxygen Flow Rate 06/02/22 12:36 06/02/22 12:54 06/02/22 12:25 Temperature 98.9 F 98.2 F Pulse Rate 64 72 Pulse Rate [Left] Pulse Rate [Pulse Oximeter] Pulse Rate [Right Pulse Oximeter] Respiratory Rate Blood Pressure Blood Pressure [Ri ght Arm] Blood Pressure [Ri ght Upper Arm] Pulse Oximetry 100 89 Oxygen Delivery Me thod Nasal Cannula Room Air Oxygen Flow Rate 3 06/02/22 12:26 06/02/22 12:27 06/02/22 12:28 Temperature Pulse Rate 68 66 66 Pulse Rate [Left] Pulse Rate [Pulse Oximeter] Pulse Rate [Right Pulse Oximeter] Respiratory Rate Blood Pressure 106/63 103/60 Blood Pressure [Ri ght Arm] Blood Pressure [Ri ght Upper Arm] Pulse Oximetry 92 93 91 Oxygen Delivery Me thod Oxygen Flow Rate 06/02/22 12:30 06/02/22 12:32 06/02/22 12:33 Temperature Pulse Rate 63 72 60 Pulse Rate [Left] Pulse Rate [Pulse Oximeter] Pulse Rate [Right Pulse Oximeter] Respiratory Rate Blood Pressure 104/62 Blood Pressure [Ri ght Arm] Blood Pressure [Ri ght Upper Arm] Pulse Oximetry 90 81 L 99 Oxygen Delivery Me thod Oxygen Flow Rate 06/02/22 12:34 06/02/22 12:36 06/02/22 12:37 Temperature Pulse Rate 60 64 67 Pulse Rate [Left] Pulse Rate [Pulse Oximeter] Pulse Rate [Right Pulse Oximeter] Respiratory Rate Blood Pressure 112/66 Blood Pressure [Ri ght Arm] Blood Pressure [Ri ght Upper Arm] Pulse Oximetry 99 99 99 Oxygen Delivery Me thod Oxygen Flow Rate 06/02/22 12:38 06/02/22 12:40 06/02/22 12:42 Temperature Pulse Rate 66 69 66 Pulse Rate [Left] Pulse Rate [Pulse Oximeter] Pulse Rate [Right Pulse Oximeter] Respiratory Rate Blood Pressure 121/71 Blood Pressure [Ri ght Arm] Blood Pressure [Ri ght Upper Arm] Pulse Oximetry 99 98 98 Oxygen Delivery Me thod Oxygen Flow Rate 06/02/22 12:43 06/02/22 12:44 06/02/22 12:46 Temperature Pulse Rate 67 63 64 Pulse Rate [Left] Pulse Rate [Pulse Oximeter] Pulse Rate [Right Pulse Oximeter] Respiratory Rate Blood Pressure Blood Pressure [Ri ght Arm] Blood Pressure [Ri ght Upper Arm] Pulse Oximetry 98 98 98 Oxygen Delivery Me thod Oxygen Flow Rate 06/02/22 12:47 06/02/22 12:48 06/02/22 13:00 Temperature 97.6 F Pulse Rate 62 61 65 Pulse Rate [Left] Pulse Rate [Pulse Oximeter] Pulse Rate [Right Pulse Oximeter] Respiratory Rate 16 Blood Pressure 117/63 Blood Pressure [Ri ght Arm] 125/77 Blood Pressure [Ri ght Upper Arm] Pulse Oximetry 98 98 Oxygen Delivery Me thod Room Air Oxygen Flow Rate 06/02/22 13:15 06/02/22 13:30 06/02/22 14:30 Temperature 97.4 F L Pulse Rate Pulse Rate [Left] Pulse Rate [Pulse Oximeter] 62 59 L 80 Pulse Rate [Right Pulse Oximeter] Respiratory Rate 16 16 16 Blood Pressure Blood Pressure [Ri ght Arm] 127/76 129/87 125/96 H Blood Pressure [Ri ght Upper Arm] Pulse Oximetry 93 92 94 Oxygen Delivery Me thod Room Air Room Air Room Air Oxygen Flow Rate 06/02/22 13:45 06/02/22 14:00 06/02/22 15:00 Temperature 98.0 F Pulse Rate Pulse Rate [Left] Pulse Rate [Pulse Oximeter] 61 73 74 Pulse Rate [Right Pulse Oximeter] Respiratory Rate 16 16 16 Blood Pressure Blood Pressure [Ri ght Arm] 123/90 H 118/72 120/68 Blood Pressure [Ri ght Upper Arm] Pulse Oximetry 95 92 95 Oxygen Delivery Me thod Room Air Room Air Room Air Oxygen Flow Rate Labs Labs: Laboratory Results - last 24 hr 06/01/22 06/01/22 06/01/22 16:25 16:25 18:06 WBC 5.84 RBC 4.62 Hgb 15.0 Hct 44.5 MCV 96 MCH 33 MCHC 34 RDW Coeff of Alyssa 11.8 Plt Count 236 Neut % (Auto) 64.5 Lymph % (Auto) 25.3 [place] % (Auto) 6.8 Eos % (Auto) 1.7 Baso % (Auto) 0.3 Neut # (Auto) 3.76 Lymph # (Auto) 1.48 [place] # (Auto) 0.40 Eos # (Auto) 0.10 Baso # (Auto) 0.02 VBG pH VBG pCO2 VBG pO2 VBG HCO3 Sodium 142 Potassium 4.0 Chloride 109 Carbon Dioxide 29 BUN 23 Creatinine 0.8 Estimated Creat Clear 72.16 Estimated GFR 95 Glucose 97 Lactate Calcium 8.8 Troponin I Urine Color Urine Appearance Urine pH Ur Specific [place] Urine Protein Urine Glucose (UA) Urine Ketones Urine Blood Urine Nitrite Urine Bilirubin Urine Urobilinogen Ur Leukocyte Esterase Urine RBC Urine WBC Ur Squamous Epith Cells Urine Bacteria SARS-CoV-2 (PCR) Negative SARS-CoV-2 06/02/22 06/02/22 06/02/22 00:15 05:49 05:49 WBC 9.03 RBC 4.20 L Hgb 13.7 Hct 40.4 MCV 96 MCH 33 MCHC 34 RDW Coeff of Alyssa Plt Count 189 Neut % (Auto) Lymph % (Auto) [place] % (Auto) Eos % (Auto) Baso % (Auto) Neut # (Auto) Lymph # (Auto) [place] # (Auto) Eos # (Auto) Baso # (Auto) VBG pH VBG pCO2 VBG pO2 VBG HCO3 Sodium 137 Potassium 4.1 Chloride 107 Carbon Dioxide 28 BUN 23 Creatinine 0.8 Estimated Creat Clear 74.37 Estimated GFR 95 Glucose 106 Lactate Calcium 8.5 Troponin I Urine Color Yellow Urine Appearance Cloudy A Urine pH 7.0 Ur Specific [place] 1.020 Urine Protein 1+ A Urine Glucose (UA) Negative Urine Ketones Negative Urine Blood 3+ A Urine Nitrite Negative Urine Bilirubin Negative Urine Urobilinogen 0.2 Ur Leukocyte Esterase Negative Urine RBC 25-50 A Urine WBC 2-5 Ur Squamous Epith Cells Few Urine Bacteria Few A SARS-CoV-2 (PCR) 06/02/22 06/02/22 05:49 13:51 WBC RBC Hgb Hct MCV MCH MCHC RDW Coeff of Alyssa Plt Count Neut % (Auto) Lymph % (Auto) [place] % (Auto) Eos % (Auto) Baso % (Auto) Neut # (Auto) Lymph # (Auto) [place] # (Auto) Eos # (Auto) Baso # (Auto) VBG pH 7.421 VBG pCO2 44 VBG pO2 38.3 VBG HCO3 29 H Sodium Potassium Chloride Carbon Dioxide BUN Creatinine Estimated Creat Clear Estimated GFR Glucose Lactate 0.7 Calcium Troponin I 0.01 Urine Color Urine Appearance Urine pH Ur Specific [place] Urine Protein Urine Glucose (UA) Urine Ketones Urine Blood Urine Nitrite Urine Bilirubin Urine Urobilinogen Ur Leukocyte Esterase Urine RBC Urine WBC Ur Squamous Epith Cells Urine Bacteria SARS-CoV-2 (PCR)
[2022-06-02] MEDS: CEFAZOLIN 2 GM in 0.9 % SODIUM CHLORIDE Mini-bag 100 ML IVPB (16:31)
[2022-06-02] MEDS: ACETAMINOPHEN 325 MG TABLET 650 MG PO (17:13)
[2022-06-02] MEDS: MELATONIN 3 MG TABLET PO (21:10)
[2022-06-02] MEDS: SENNOSIDES 1 TAB TABLET 2 TAB PO (21:11)
[2022-06-02] MEDS: TIZANIDINE HCL 4 MG TABLET PO (22:59)
[2022-06-02] MEDS: LORazepam 0.5 MG TABLET PO (22:59)
--- NOTE | 2022-06-02 23:21 | PC.NURSE ---
Shift note: The pt has been denying chest pain and acute distress throughout the shift. The pt was up to the chair, with a walker and gait belt, NWB on the left leg, tolerated the activity well. C/O 3-12/07 pain to the left hip- pain has been well managed with PRN and scheduled pain medications. [place]ma[place] is patent and draining yellowish urine ( 850 cc this shift).
[2022-06-03] MEDS: CEFAZOLIN 2 GM in 0.9 % SODIUM CHLORIDE Mini-bag 100 ML IVPB ×2 (00:01→08:40)
[2022-06-03] MEDS: ACETAMINOPHEN 325 MG TABLET 650 MG PO ×2 (00:01→06:07)
[2022-06-03 01:40] VITALS: BP 148/91; PULSE 68; PULSE 76; RESP 18; TEMP 36.5; O2SAT 97
[2022-06-03 03:00] VITALS: RESP 16; O2SAT 99
[2022-06-03] MEDS: LEVOTHYROXINE 100 MCG TABLET PO (06:08)
[2022-06-03] MEDS: OMEPRAZOLE 20 MG CAPSULE DR PO (06:08)
[2022-06-03] MEDS: TIZANIDINE HCL 4 MG TABLET PO (06:08)
[2022-06-03] MEDS: OXYCODONE 5 MG TABLET PO ×4 (06:10→21:14)
--- NOTE | 2022-06-03 06:46 | PC.NURSE ---
19-: pleasant and cooperative. Slept well throughout the night. c/o pain 1-10/07, oxy given with relief. NWB to left extremity. In bed this shift. Mcma[place] patent and draining. VSS. Active ice to hip, Dressing CDI.
[2022-06-03 06:58] LABS: Hematocrit 37.3 % (37.0-53.0); Hemoglobin* 12.9 gm/dL (13.5-17.5); Mean Corpuscular HGB Conc 35 gm/dL (32-36); Mean Corpuscular Hemoglobin 33 pg (26-34); Mean Corpuscular Volume 95 fL (80-100); Platelet Count* 176 K/uL (140-440); Red Blood Count 3.94 m/uL (4.30-5.90); White Blood Count* 10.44 K/uL (4.50-11.00)
[2022-06-03 07:00] VITALS: PULSE 64; RESP 16; TEMP 36.9; O2SAT 98
[2022-06-03 07:13] LABS: Potassium* 3.8 mmol/L (3.6-5.1); Slide Review Reflex No; Sodium* 136 mmol/L (135-149)
[2022-06-03 07:16] LABS: Creatinine* 0.8 mg/dL (0.5-1.5); Est. Creatinine Clearance* 74.37; Estimated Glomerular Filt Rate 95 ml/min
[2022-06-03 07:17] LABS: Blood Urea Nitrogen* 20 mg/dL (7-30)
[2022-06-03] MEDS: SENNOSIDES 1 TAB TABLET 2 TAB PO ×2 (09:27→21:13)
[2022-06-03] MEDS: FEXOFENADINE 180 MG TABLET PO (09:27)
[2022-06-03] MEDS: RIVAROXABAN 10 MG TABLET PO (09:27)
--- NOTE | 2022-06-03 09:40 | PM.ORPN ---
Subjective Subjective Time Seen by Provider: 07:45 Date Seen: 06/03/22 Principal diagnosis: Status post left hip ORIF, femoral neck fracture 06/02/2022 Interval history: Jong is comfortable while at rest in his bed this morning. Ortho Exam Narrative Exam Narrative: Alert and oriented x3. Patient is in no acute distress. Converses without labored breathing. Hearing is grossly intact. Ambulates with a toe-touch weight-bearing with crutches or walker. Examination of the left hip shows the dressing is intact. Mild soft tissue edema about the left hip and thigh. CMS intact left lower extremity. Bilateral calves are soft and nontender. Const Vital Signs, click to edit/add: Vital Signs - 24 hr 06/02/22 12:36 06/02/22 12:54 06/02/22 12:25 Temperature 98.9 F 98.2 F Pulse Rate 64 72 Pulse Rate [Pulse Oximeter] Respiratory Rate Blood Pressure Blood Pressure [Right Arm] Pulse Oximetry 100 89 Oxygen Delivery Method Nasal Cannula Room Air Oxygen Flow Rate 3 06/02/22 12:26 06/02/22 12:27 06/02/22 12:28 Temperature Pulse Rate 68 66 66 Pulse Rate [Pulse Oximeter] Respiratory Rate Blood Pressure 106/63 103/60 Blood Pressure [Right Arm] Pulse Oximetry 92 93 91 Oxygen Delivery Method Oxygen Flow Rate 06/02/22 12:30 06/02/22 12:32 06/02/22 12:33 Temperature Pulse Rate 63 72 60 Pulse Rate [Pulse Oximeter] Respiratory Rate Blood Pressure 104/62 Blood Pressure [Right Arm] Pulse Oximetry 90 81 L 99 Oxygen Delivery Method Oxygen Flow Rate 06/02/22 12:34 06/02/22 12:36 06/02/22 12:37 Temperature Pulse Rate 60 64 67 Pulse Rate [Pulse Oximeter] Respiratory Rate Blood Pressure 112/66 Blood Pressure [Right Arm] Pulse Oximetry 99 99 99 Oxygen Delivery Method Oxygen Flow Rate 06/02/22 12:38 06/02/22 12:40 06/02/22 12:42 Temperature Pulse Rate 66 69 66 Pulse Rate [Pulse Oximeter] Respiratory Rate Blood Pressure 121/71 Blood Pressure [Right Arm] Pulse Oximetry 99 98 98 Oxygen Delivery Method Oxygen Flow Rate 06/02/22 12:43 06/02/22 12:44 06/02/22 12:46 Temperature Pulse Rate 67 63 64 Pulse Rate [Pulse Oximeter] Respiratory Rate Blood Pressure Blood Pressure [Right Arm] Pulse Oximetry 98 98 98 Oxygen Delivery Method Oxygen Flow Rate 06/02/22 12:47 06/02/22 12:48 06/02/22 13:00 Temperature 97.6 F Pulse Rate 62 61 65 Pulse Rate [Pulse Oximeter] Respiratory Rate 16 Blood Pressure 117/63 Blood Pressure [Right Arm] 125/77 Pulse Oximetry 98 98 Oxygen Delivery Method Room Air Oxygen Flow Rate 06/02/22 13:15 06/02/22 13:30 06/02/22 14:30 Temperature 97.4 F L Pulse Rate Pulse Rate [Pulse Oximeter] 62 59 L 80 Respiratory Rate 16 16 16 Blood Pressure Blood Pressure [Right Arm] 127/76 129/87 125/96 H Pulse Oximetry 93 92 94 Oxygen Delivery Method Room Air Room Air Room Air Oxygen Flow Rate 06/02/22 13:45 06/02/22 14:00 06/02/22 15:00 Temperature 98.0 F Pulse Rate Pulse Rate [Pulse Oximeter] 61 73 74 Respiratory Rate 16 16 16 Blood Pressure Blood Pressure [Right Arm] 123/90 H 118/72 120/68 Pulse Oximetry 95 92 95 Oxygen Delivery Method Room Air Room Air Room Air Oxygen Flow Rate 06/02/22 16:00 06/02/22 15:00 06/02/22 16:00 Temperature 98.2 F Pulse Rate Pulse Rate [Pulse Oximeter] 74 76 78 Respiratory Rate 16 16 16 Blood Pressure Blood Pressure [Right Arm] 120/68 133/72 Pulse Oximetry 94 94 Oxygen Delivery Method Room Air Room Air Oxygen Flow Rate 06/02/22 17:00 06/02/22 18:00 06/02/22 19:00 Temperature 98.1 F Pulse Rate Pulse Rate [Pulse Oximeter] 79 77 77 Respiratory Rate 16 16 16 Blood Pressure Blood Pressure [Right Arm] 158/42 H 136/73 114/77 Pulse Oximetry 94 95 95 Oxygen Delivery Method Room Air Room Air Room Air Oxygen Flow Rate 3 06/02/22 23:00 06/02/22 23:00 06/03/22 03:00 Temperature 97.2 F L Pulse Rate Pulse Rate [Pulse Oximeter] 70 70 Respiratory Rate 16 16 16 Blood Pressure Blood Pressure [Right Arm] 112/77 Pulse Oximetry 99 99 Oxygen Delivery Method Room Air Room Air Oxygen Flow Rate 06/03/22 07:00 01/04/23 07:00 Temperature 98.4 F Pulse Rate Pulse Rate [Pulse Oximeter] 64 Respiratory Rate 16 16 Blood Pressure Blood Pressure [Right Arm] Pulse Oximetry 98 Oxygen Delivery Method Room Air Oxygen Flow Rate Assessment and Plan Assessment and plan (1) Hip fracture: Problem details: - 06/01/22: Acute, intracapsular, subcapital fracture of the left proximal femur - s/p ORIF 06/02/22 Status: Acute Assessment and Plan: Plan for discharge is today to home if they meet discharge criteria. DVT prophylaxis includes Xarelto 10 mg daily for total of 30 days, Herman stockings x1 month may remove for 1 hr per day, frequent ambulation Remove dressing 1 week. Observe wound and phone Orthopedics with any questions or concerns Use Ice on operative hip unrestricted. Return to clinic in 1 week with PA for a wound check Return to clinic in [address] Almaguer Minimize narcotic use. Wean off and discontinue soon as possible. Activities as tolerated. No strenuous activity. Attend outpt PT (2) Gastroesophageal reflux disease: Problem details: - continue home PPI Status: Acute (3) Gomez's esophagus: Status: Acute
[2022-06-03 11:00] VITALS: BP 137/72; PULSE 77; RESP 20; TEMP 37; O2SAT 98
--- NOTE | 2022-06-03 11:23 | PM.IMPN1 ---
Progress Note: A&P Assessment and plan (1) Hip fracture: Problem details: - 06/01/22: Acute, intracapsular, subcapital fracture of the left proximal femur - s/p ORIF 06/02/22 Status: Acute (2) Gastroesophageal reflux disease: Problem details: - continue home PPI Status: Acute (3) Gomez's esophagus: Status: Acute Plan - continue postoperative therapies - schedule Tylenol with prn Oxycodone and Vistaril - Xarelto for prophylaxis - plan for discharge home tomorrow with Subjective Date Seen: 06/03/22 Interval history: Jong is a 72-year-old male, admitted to the hospital 06/01 for left hip fracture after a mechanical fall on ice while leaving work. He underwent a L hip ORIF with Dr. Almaguer of Orthopedic surgery on 06/02. Today, he notes some hesitation with pain management and therapies. He does not feel that he is ready to be safely discharged home today. He also has migraine (typical for him) after therapy this morning. He had a reassuring head CT yesterday prior to surgery (this was performed because he also hit his head during injury). Exam Narrative: Exam Narrative: GEN: Alert and oriented, answering questions appropriately HEENT: Normal external ears, EOMIs bilaterally, no scleral icterus. Facial flushing noted (patient is afebrile, both he and note that facial flushing is a typical migraine symptom for him) CV: RRR, No concerning murmurs, rubs, or gallops R: LCTA bilaterally without concerning wheezing, rales, or rhonchi Ext: wwp, no concerning edema Neuro: Nonfocal Psych: Appropriate Const: Vital Signs, click to edit/add: Vital Signs - 24 hr 06/02/22 12:36 06/02/22 12:54 06/02/22 12:25 Temperature 98.9 F 98.2 F Pulse Rate 64 72 Pulse Rate [Pulse Oximeter] Respiratory Rate Blood Pressure Blood Pressure [Ri ght Arm] Pulse Oximetry 100 89 Oxygen Delivery Me thod Nasal Cannula Room Air Oxygen Flow Rate 3 06/02/22 12:26 06/02/22 12:27 06/02/22 12:28 Temperature Pulse Rate 68 66 66 Pulse Rate [Pulse Oximeter] Respiratory Rate Blood Pressure 106/63 103/60 Blood Pressure [Ri ght Arm] Pulse Oximetry 92 93 91 Oxygen Delivery Me thod Oxygen Flow Rate 06/02/22 12:30 06/02/22 12:32 06/02/22 12:33 Temperature Pulse Rate 63 72 60 Pulse Rate [Pulse Oximeter] Respiratory Rate Blood Pressure 104/62 Blood Pressure [Ri ght Arm] Pulse Oximetry 90 81 L 99 Oxygen Delivery Me thod Oxygen Flow Rate 06/02/22 12:34 06/02/22 12:36 06/02/22 12:37 Temperature Pulse Rate 60 64 67 Pulse Rate [Pulse Oximeter] Respiratory Rate Blood Pressure 112/66 Blood Pressure [Ri ght Arm] Pulse Oximetry 99 99 99 Oxygen Delivery Me thod Oxygen Flow Rate 06/02/22 12:38 06/02/22 12:40 06/02/22 12:42 Temperature Pulse Rate 66 69 66 Pulse Rate [Pulse Oximeter] Respiratory Rate Blood Pressure 121/71 Blood Pressure [Ri ght Arm] Pulse Oximetry 99 98 98 Oxygen Delivery Me thod Oxygen Flow Rate 06/02/22 12:43 06/02/22 12:44 06/02/22 12:46 Temperature Pulse Rate 67 63 64 Pulse Rate [Pulse Oximeter] Respiratory Rate Blood Pressure Blood Pressure [Ri ght Arm] Pulse Oximetry 98 98 98 Oxygen Delivery Me thod Oxygen Flow Rate 06/02/22 12:47 06/02/22 12:48 06/02/22 13:00 Temperature 97.6 F Pulse Rate 62 61 65 Pulse Rate [Pulse Oximeter] Respiratory Rate 16 Blood Pressure 117/63 Blood Pressure [Ri ght Arm] 125/77 Pulse Oximetry 98 98 Oxygen Delivery Me thod Room Air Oxygen Flow Rate 06/02/22 13:15 06/02/22 13:30 06/02/22 14:30 Temperature 97.4 F L Pulse Rate Pulse Rate [Pulse Oximeter] 62 59 L 80 Respiratory Rate 16 16 16 Blood Pressure Blood Pressure [Ri ght Arm] 127/76 129/87 125/96 H Pulse Oximetry 93 92 94 Oxygen Delivery Me thod Room Air Room Air Room Air Oxygen Flow Rate 06/02/22 13:45 06/02/22 14:00 06/02/22 15:00 Temperature 98.0 F Pulse Rate Pulse Rate [Pulse Oximeter] 61 73 74 Respiratory Rate 16 16 16 Blood Pressure Blood Pressure [Ri ght Arm] 123/90 H 118/72 120/68 Pulse Oximetry 95 92 95 Oxygen Delivery Me thod Room Air Room Air Room Air Oxygen Flow Rate 06/02/22 16:00 06/02/22 15:00 06/02/22 16:00 Temperature 98.2 F Pulse Rate Pulse Rate [Pulse Oximeter] 74 76 78 Respiratory Rate 16 16 16 Blood Pressure Blood Pressure [Ri ght Arm] 120/68 133/72 Pulse Oximetry 94 94 Oxygen Delivery Me thod Room Air Room Air Oxygen Flow Rate 06/02/22 17:00 06/02/22 18:00 06/02/22 19:00 Temperature 98.1 F Pulse Rate Pulse Rate [Pulse Oximeter] 79 77 77 Respiratory Rate 16 16 16 Blood Pressure Blood Pressure [Ri ght Arm] 158/42 H 136/73 114/77 Pulse Oximetry 94 95 95 Oxygen Delivery Me thod Room Air Room Air Room Air Oxygen Flow Rate 3 06/02/22 23:00 06/02/22 23:00 06/03/22 03:00 Temperature 97.2 F L Pulse Rate Pulse Rate [Pulse Oximeter] 70 70 Respiratory Rate 16 16 16 Blood Pressure Blood Pressure [Ri ght Arm] 112/77 Pulse Oximetry 99 99 Oxygen Delivery Me thod Room Air Room Air Oxygen Flow Rate 06/03/22 07:00 06/03/22 07:00 Temperature 98.4 F Pulse Rate Pulse Rate [Pulse Oximeter] 64 Respiratory Rate 16 16 Blood Pressure Blood Pressure [Ri ght Arm] Pulse Oximetry 98 Oxygen Delivery Me thod Room Air Oxygen Flow Rate Labs Labs: Laboratory Results - last 24 hr 06/02/22 06/03/22 06/03/22 13:51 05:47 05:47 WBC 10.44 RBC 3.94 L Hgb 12.9 L Hct 37.3 MCV 95 MCH 33 MCHC 35 Plt Count 176 Sodium 136 Potassium 3.8 BUN 20 Creatinine 0.8 Estimated Creat Clear 74.37 Estimated GFR 95 Troponin I 0.01
[2022-06-03] MEDS: ACETAMINOPHEN 325 MG TABLET 975 MG PO ×2 (13:43→21:12)
--- NOTE | 2022-06-03 14:58 | PC.NURSE ---
End of shift [id number]: pleasant and cooperative. Pt. rated pain 5/10, oxy administered x2 w/relief. Denies N/V/SOB toe touch to left extremity. Up to chair for meals and ambulated halls x2, tolerated activity well. Mcmahon patent and draining this AM and was DC'd tip intact at 1130. VSS. Active ice to hip, Dressing to left hip CDI. Afebrile this shift. Plan for discharge non-emergent transport w/ to home 06/04/22.
[2022-06-03 15:00] VITALS: BP 136/69; PULSE 71; RESP 18; TEMP 36.6; O2SAT 98
--- NOTE | 2022-06-03 15:03 | PC.SOCIAL ---
Met with pt. and spouse to discuss discharge plans. Pt. is moving fairly well with therapies and wants to discharge home rather than going to a SNF. [facility] can see pt. for [facility] and therapies and will open pt. to home care on Wednesday. Pt. has multiple stairs to get in his home and his spouse does not drive. A non-emergency EMS transport will be set up to get pt. up stairs. Spouse Christine signed consent for the private payment of the transport. Pt. has a workers comp claim so the transport will be submitted to his claim as well.
[2022-06-03 19:00] VITALS: BP 131/73; PULSE 76; RESP 18; TEMP 36.5; O2SAT 97
[2022-06-03] MEDS: MELATONIN 3 MG TABLET PO (21:13)
--- NOTE | 2022-06-03 22:53 | PC.NURSE ---
[id number]: Patient pleasant and cooperative with cares. Rates pain 1-2/10. PRN Oxycodone x1 for relief. Moving independently with walker in room and halls x1. Dressing to L. thigh C/D/I. CMS intact. Active ice to op site. Eating and voiding. Denies N/V.
[2022-06-04] MEDS: OXYCODONE 5 MG TABLET PO ×3 (01:50→12:30)
[2022-06-04 03:00] VITALS: RESP 18
[2022-06-04] MEDS: ACETAMINOPHEN 325 MG TABLET 975 MG PO ×2 (05:16→12:30)
[2022-06-04] MEDS: OMEPRAZOLE 20 MG CAPSULE DR PO (05:16)
[2022-06-04] MEDS: LEVOTHYROXINE 100 MCG TABLET PO (05:17)
[2022-06-04 07:00] VITALS: BP 145/78; PULSE 73; RESP 20; TEMP 36.6; O2SAT 98
[2022-06-04 07:06] LABS: Hematocrit 39.6 % (37.0-53.0); Hemoglobin* 13.3 gm/dL (13.5-17.5); Mean Corpuscular HGB Conc 34 gm/dL (32-36); Mean Corpuscular Hemoglobin 33 pg (26-34); Mean Corpuscular Volume 97 fL (80-100); Platelet Count* 186 K/uL (140-440); Red Blood Count 4.09 m/uL (4.30-5.90); White Blood Count* 8.59 K/uL (4.50-11.00)
--- NOTE | 2022-06-04 07:06 | PC.NURSE ---
Status [id number] Pt alert and oriented. Receiving scheduled Tylenol and PRN Oxy for pain to the left hip. CMS intact and dressing CDI. VSS on room air. Voiding without difficulty. Up with stand by and walker with toe touch per PT recommendations. Pt observed resting between cares. Plan to d/c home with today.
[2022-06-04 07:11] LABS: Slide Review Reflex No
[2022-06-04 07:24] LABS: Potassium* 4.4 mmol/L (3.6-5.1); Sodium* 140 mmol/L (135-149)
[2022-06-04 07:27] LABS: Blood Urea Nitrogen* 24 mg/dL (7-30); Creatinine* 0.9 mg/dL (0.5-1.5); Est. Creatinine Clearance* 74.37; Estimated Glomerular Filt Rate 91 ml/min
--- NOTE | 2022-06-04 08:32 | PM.ORPN ---
Subjective Subjective Time Seen by Provider: 07:30 Date Seen: 06/04/22 Principal diagnosis: Status post left hip ORIF, femoral neck fracture 06/02/2022 Interval history: Jong is comfortable in his recliner today. He will be discharging to home today. He has been ambulating toe-touch weight-bearing on left lower extremity. Has 8 stairs at his home. He also states that his left knee has been hurting since his fall. He is unsure if the pain radiating from the hip. He feels the pain medial and lateral distal femur. Ortho Exam Narrative Exam Narrative: Alert and oriented x3. Patient is in no acute distress. Converses without labored breathing. Hearing is grossly intact. Ambulates with a walker, crutches. Toe-touch weight-bearing. Examination of the left hip shows mild swelling. No ecchymosis. Dressing is intact. CMS intact left lower extremity. Able to slightly straight leg raise seated position left lower extremity. Lower calves are soft nontender. Examination of the left knee shows no erythema, edema, effusion. Nontender to palpation about the knee. No ecchymosis. Skin is intact. No sign of infection. Const Vital Signs, click to edit/add: Vital Signs - 24 hr 06/03/22 11:00 06/03/22 15:00 06/03/22 19:00 Temperature 98.6 F 97.8 F 97.7 F Pulse Rate [Pulse Oximeter] 77 71 76 Respiratory Rate 20 18 18 Blood Pressure [Right Arm] 137/72 136/69 131/73 Pulse Oximetry 98 98 97 Oxygen Delivery Method Room Air Room Air Room Air 06/04/22 03:00 Temperature Pulse Rate [Pulse Oximeter] Respiratory Rate 18 Blood Pressure [Right Arm] Pulse Oximetry Oxygen Delivery Method Assessment and Plan Assessment and plan (1) Hip fracture: Problem details: - 06/01/22: Acute, intracapsular, subcapital fracture of the left proximal femur - s/p ORIF 06/02/22 Status: Acute Assessment and Plan: Plan for discharge is today to home if they meet discharge criteria. DVT prophylaxis includes Xarelto 10 mg daily for total of 30 days, Herman stockings x1 month may remove for 1 hr per day, frequent movement throughout the day. Continue toe-touch weight-bearing left lower extremity. Remove dressing 1 week. Observe wound and phone Orthopedics with any questions or concerns Use Ice on operative hip unrestricted. Return to clinic in 1 week with PA for a wound check Return to clinic in [address] Almaguer Minimize narcotic use. Wean off and discontinue soon as possible. For his knee discomfort on the left, we will watch for now. Knee pain may be related to IT band incision at the hip, with radiating pain to the knee. There was no manipulation of the knee during surgery except for mild traction through the left lower extremity that was brief. (2) Gastroesophageal reflux disease: Problem details: - continue home PPI Status: Acute (3) Gomez's esophagus: Status: Acute
[2022-06-04] MEDS: SENNOSIDES 1 TAB TABLET 2 TAB PO (08:43)
[2022-06-04] MEDS: FEXOFENADINE 180 MG TABLET PO (08:43)
[2022-06-04] MEDS: RIVAROXABAN 10 MG TABLET PO (08:43)
--- NOTE | 2022-06-04 09:18 | PM.DS1 ---
DS: Providers Provider Date Seen: 06/04/22 Date of admission: 06/01/22 21:35 Primary care physician: Spenser Bales MD Admitting Clinician: Gael López MD Consults: PT, OT, orthopedic surgery Attending Physician on discharge: Katalina Torres MD Date of Discharge: 06/04/22 DS: Diagnosis Discharge Diagnosis (1) Hip fracture: Status: Acute Problem details: - 06/01/22: Acute, intracapsular, subcapital fracture of the left proximal femur - s/p ORIF 06/02/22 (2) Gastroesophageal reflux disease: Status: Acute Problem details: - with Gomez's esophagus, stable. Continue home PPI DS: Summary Hospital Course Hospital Course: 72-year-old male, presented to the hospital after mechanical fall at work. He was found to have a left subcapital hip fracture, status post ORIF with Dr. Almaguer of Orthopedic surgery. Patient did well with therapies postoperatively, will discharge home with today; home health ordered. Comorbidities remained stable, continued home medications. Routine follow-up with orthopedic surgery and PCP upon discharge. Status at Discharge Overall status at discharge: patient is progressing back to baseline Time Spent with Patient Time attestation: Total time spent providing and/or coordinating discharge services: Time spent: Greater than 30 minutes Specific discharge activities: Home healthcare referral, medication reconciliation, care coordination Exam Narrative: Exam Narrative: GEN: Alert and oriented, nontoxic in appearance HEENT: Normal external ears, EOMIs bilaterally, no scleral icterus CV: RRR, No concerning murmurs, rubs, or gallops R: LCTA bilaterally without concerning wheezing, rales, or rhonchi Skin: No concerning skin lesions or rashes on exposed skin Neuro: Nonfocal Psych: Appropriate Const: Vital Signs, click to edit/add: Vital Signs - 24 hr 06/03/22 11:00 06/03/22 15:00 06/03/22 19:00 Temperature 98.6 F 97.8 F 97.7 F Pulse Rate [Pulse Oximeter] 77 71 76 Respiratory Rate 20 18 18 Blood Pressure [Ri ght Arm] 137/72 136/69 131/73 Pulse Oximetry 98 98 97 Oxygen Delivery Me thod Room Air Room Air Room Air 06/04/22 03:00 06/04/22 07:00 06/04/22 07:00 Temperature 97.9 F Pulse Rate [Pulse Oximeter] 73 Respiratory Rate 18 20 20 Blood Pressure [Ri ght Arm] 145/78 H Pulse Oximetry 98 Oxygen Delivery Me thod Room Air DS: Data Data Completed and Pending Labs on day of discharge: Labs from last 24 hours 06/04/22 06/04/22 06:09 06:09 WBC 8.59 RBC 4.09 L Hgb 13.3 L Hct 39.6 MCV 97 MCH 33 MCHC 34 Plt Count 186 Sodium 140 Potassium 4.4 BUN 24 Creatinine 0.9 Estimated Creat Clear 74.37 Estimated GFR 91 Discharge Plan Discharge Disposition: Home Health Service Date of Admission: 06/01/22 21:35 Attending Provider on Discharge: Katalnia Torres Primary Care Provider: Spenser Bales Condition: Improved Anticipated Discharge Date/Time: 06/04/22 13:00 Discharge Medications: New acetaminophen 500 mg capsule 500 - 1,000 mg PO Q6H MDD 4000mg per day PRN (Reason: pain) Qty: 100 0RF oxycodone 5 mg Tablet 2.5 - 5 mg PO Q4-6H MDD 6 tabs per day PRN (Reason: Pain) Qty: 42 0RF Rx Instructions: Minimize. Discontinue as soon as possible sennosides [Senna Lax] 8.6 mg Tablet 17.2 mg PO BID PRN (Reason: constipation) Qty: 100 0RF Xarelto 10 mg tablet 10 mg PO DAILY Qty: 30 0RF Rx Instructions: for 30 days Continued fexofenadine 180 mg tablet 180 mg PO DAILY levothyroxine 100 mcg tablet 100 mcg PO DAILY omeprazole 20 mg capsule,delayed release(DR/EC) 20 mg PO DAILY tizanidine 4 mg tablet 4 mg PO Q8H PRN Discharge Orders: Discharge Order (Routine); Ordered 06/04/22 Ordered By: Katalina Torres Consulting provider completed their portion of the discharge: Yes Patient Education: Acetaminophen (By mouth), Oxycodone, Rapid Release (By mouth), Rivaroxaban (By mouth) (Xarelto, Xarelto Starter Pack), Senna (By mouth), ORIF of Hip Fracture (DC) Activity Level: Toe Touch Wt Bearing Activity Detail: Keep dressing on for 1 week. Dressing is waterproof. May shower. Surgical glue covers the wound. Ice and elevate operative extremity without restriction. Wear compression stockings for 1 month post surgery. May remove for 1 hour per day. If you drive, Do not drive while taking narcotic pain medication. Do not drink alcohol while taking narcotic pain medication. May drive when safe to do so and have full function of the extremities, this may take 6 weeks or more. Notify Orthopedics with any questions or concerns. ([phone]) Toe-touch weight-bearing left lower extremity Follow Up Appointments: Diana Flores PA-C [Physician Environmental Studies Program Director] - 06/10/22 11:20 am ([facility] - Schedule 6-week appointment at this time) Spenser Bales MD [Primary Care Provider] - (Schedule appointment as needed) Forms: [employer] Info Instructions Discharge Comments: appointments needed: Return to clinic in 1 week for wound check with orthopedic physician periodontal assistant, and [address] Almaguer.
[2022-06-04 11:00] VITALS: BP 131/83; PULSE 77; RESP 20; TEMP 37; O2SAT 99
[2022-06-04 11:08] VITALS: BP 117/63; PULSE 65; RESP 20; TEMP 36.6
== END 2022-06-04 14:55 | disposition home health service (06) | DRG 482 ==
LOC: ED 18:26 → MEDSURG 19:40
PROVIDERS: Family Medicine; Orthopaedic Surgery; Admitting Provider Internal Medicine; Emergency Provider Emergency Medicine Emergency Medical Services; PCP Family Medicine; Visit Provider Internal Medicine
PROC: 0QS704Z Reposition Left Upper Femur with Internal Fixation Device, Open Approach (ICD-10-PCS; principal; 2022-06-02 10:45)
DX: S72.012A Unspecified intracapsular fracture of left femur, initial encounter for closed fracture (principal); M25.552 Pain in left hip; S09.90XA Unspecified injury of head, initial encounter; M25.562 Pain in left knee; W00.0XXA Fall on same level due to ice and snow, initial encounter; M62.838 Other muscle spasm; K21.9 Gastro-esophageal reflux disease without esophagitis; K22.70 Barrett's esophagus without dysplasia; G43.909 Migraine, unspecified, not intractable, without status migrainosus; R07.9 Chest pain, unspecified; N40.0 Benign prostatic hyperplasia without lower urinary tract symptoms; M51.27 Other intervertebral disc displacement, lumbosacral region; R73.03 Prediabetes; E78.2 Mixed hyperlipidemia; E03.9 Hypothyroidism, unspecified
CPT/HCPCS: 01210; 36415; 64450; 70450; 71045; 73501; 73502; 76000; 76942; 80048; 81001; 82565; 82803; 83605; 84132; 84295; 84484; 84520; 85025; 85027; 87086; 87635; 93005; 97110; 97116; 97161; 97165; 97530; 97535; 99100; 99140; 99285; A9270; C1713; J0690; J1100; J1170; J2250; J2270; J2370; J2405; J2704; J2795; J3490; J7120

== ENCOUNTER 2022-06-04 14:49 | Outpatient (CLI) | payer OTHER, MEDICARE, BC, SELFPAY | END 2022-06-04 14:50 | disposition home or self-care (01) | PROVIDERS: PCP Family Medicine; Visit Provider Family Medicine | DX: Z02.89 Encounter for other administrative examinations (principal) | CPT/HCPCS: A0425; A0428 ==

== ENCOUNTER 2022-09-02 13:45 | Outpatient (RCR) | payer OTHER, BC, SELFPAY | END 2022-12-17 23:59 | disposition home or self-care (01) | PROVIDERS: PCP Family Medicine; Visit Provider Physician Assistant Surgical | DX: S72.009D Fracture of unspecified part of neck of unspecified femur, subsequent encounter for closed fracture with routine healing (principal); Z51.89 Encounter for other specified aftercare | CPT/HCPCS: 97110; 97112; 97140; 97161 ==

== ENCOUNTER 2023-08-17 04:44 | Emergency (ER) | payer MEDICARE, BC, SELFPAY ==
[2023-08-17 04:49] VITALS: BP 152/84; PULSE 64; RESP 16; TEMP 36.4; O2SAT 98; BMI 27.1
--- NOTE | 2023-08-17 05:02 | ED_ITS ---
HPI - Neck Pain/Injury General Time Seen by Provider: 05:03 Date Seen: 08/17/23 Chief Complaint: Neck Injury/Pain Stated Complaint: Neck Pain Time Seen by Provider: 08/17/23 05:02 Source: patient, family, RN notes reviewed and old records reviewed Mode of arrival: ambulatory Limitations: no limitations History of Present Illness HPI Narrative: 71-year-old male with history of back pain comes in today with neck pain. Patient helped his daughter moved last week, had some increased pain in the shoulder left side of the base of the neck, went to the chiropractor yesterday and had a manipulation done, worsening pain today. No radiation of the pain into the arms or legs, no numbness or tingling the arms or legs. Taking Tylenol and ibuprofen. Has had similar in the past. Related Data Home Medications Medication Instructions Recorded Confirmed fexofenadine 180 mg tablet 180 mg PO DAILY 06/01/22 08/17/23 levothyroxine 100 mcg tablet 100 mcg PO DAILY 06/01/22 08/17/23 omeprazole 20 mg capsule,delayed 20 mg PO DAILY 06/01/22 08/17/23 release ascorbate calcium (vitamin C) PO 04/10/23 04/10/23 dextromethorphan-guaifenesin 10 1 tab-cap PO ONCE PRN 04/10/23 04/10/23 mg-200 mg capsule (Robitussin Cough-Chest Congestion DM) tamsulosin 0.4 mg capsule 0.4 mg PO DAILY 08/17/23 08/17/23 Allergies Allergy/AdvReac Type Severity Reaction Status Date / Time No Known Drug Allergies Allergy Verified 08/17/23 04:54 [facility] Medical History Muscle spasm ?M62.838 - Other muscle spasm (ICD-10) Gomez's esophagus ?K22.70 - Gomez's esophagus without dysplasia (ICD-10) Gastroesophageal reflux disease ?K21.9 - Gastro-esophageal reflux disease without esophagitis (ICD-10) Mixed hyperlipidemia ?E78.2 - Mixed hyperlipidemia (ICD-10) Prediabetes ?R73.03 - Prediabetes (ICD-10) Adenomatous colon polyp ?D12.6 - Benign neoplasm of colon, unspecified (ICD-10) Migraine ?G43.909 - Migraine, unspecified, not intractable, without status migrainosus (ICD-10) Seasonal allergies ?J30.2 - Other seasonal allergic rhinitis (ICD-10) Herniation of intervertebral disc between L5 and S1 ?M51.27 - Other intervertebral disc displacement, lumbosacral region (ICD-10) Herniation of intervertebral disc between L4 and L5 ?M51.26 - Other intervertebral disc displacement, lumbar region (ICD-10) Benign prostatic hyperplasia ?N40.0 - Benign prostatic hyperplasia without lower urinary tract symptoms (ICD-10) Essential hypertension ?I10 - Essential (primary) hypertension (ICD-10) Primary hypothyroidism ?E03.9 - Hypothyroidism, unspecified (ICD-10) Surgical History Status post open reduction and internal fixation (ORIF) of fracture (06/02/22) ?Z98.890 - Other specified postprocedural states (ICD-10) ?Z87.81 - Personal history of (healed) traumatic fracture (ICD-10) Status post Mohs surgery ?Z98.890 - Other specified postprocedural states (ICD-10) Status post right rotator cuff repair (09/23/05) ?Z98.890 - Other specified postprocedural states (ICD-10) Status post laminectomy ?Z98.890 - Other specified postprocedural states (ICD-10) Status post transurethral resection of prostate ?Z90.79 - Acquired absence of other genital organ(s) (ICD-10) Status post bilateral cataract extraction ?Z98.41 - Cataract extraction status, right eye (ICD-10) ?Z98.42 - Cataract extraction status, left eye (ICD-10) Status post appendectomy ?Z90.49 - Acquired absence of other specified parts of digestive tract (ICD- 10) History of left inguinal hernia repair ?Z98.890 - Other specified postprocedural states (ICD-10) ?Z87.19 - Personal history of other diseases of the digestive system (ICD-10) History of umbilical hernia repair ?Z98.890 - Other specified postprocedural states (ICD-10) ?Z87.19 - Personal history of other diseases of the digestive system (ICD-10) History of esophagogastroduodenoscopy (EGD) ?Z98.890 - Other specified postprocedural states (ICD-10) History of colonoscopy ?Z98.890 - Other specified postprocedural states (ICD-10) Family History Mother CHF (congestive heart failure) Grandfather Diabetes Grandmother Diabetes Social History Highest level of school completed/degree received: some college, no degree Smoking Status: Never smoker Do you use any of these nicotine containing products: None Second hand tobacco smoke exposure: No How often do you have a drink containing alcohol: 2-4 times a month Alcohol type: hard liquor How many standard drinks containing alcohol do you have on a typical day: 1 or 2 How often do you have six or more drinks on one occasion: Never AUDIT-C Alcohol total score: 2 Non-prescribed substance use: denies use Caffeine: No service: No Exam Narrative: Exam Narrative: General: well nourished , NAD Head: Atraumatic and normocephalic ENT: External ears and external nose are normal Eyes: Conjunctiva clear, pupils are equal reactive, external ocular motions are intact Neck: Tenderness of the left inferior cervical paraspinous musculature as well as left trapezius. Limited head rotation to about 45? to the left into the right. Lungs: No respiratory distress Musculoskeletal: No tenderness or deformity Neurologic: No gross focal neurologic deficits Skin: No rashes Psych: Mood and affect are appropriate Const: Vital Signs, click to edit/add: Vital Signs - 24 hr 08/17/23 04:49 Temperature 97.6 F Pulse Rate [Pulse Oximeter] 64 Respiratory Rate 16 Blood Pressure [Ri ght Upper Arm] 152/84 H Pulse Oximetry 98 Oxygen Delivery Me thod Room Air Course Course ED Course: Patient seen examined. Patient presents today with predominantly left-sided neck pain going on for several days. Consider cervical imaging with x-ray or CT scan but No trauma, no midline tenderness. Exam here is tenderness of the left paraspinous musculature and left trapezius, no neurologic symptoms to suggest disc herniation or cervical radiculopathy. Symptoms are most consistent with cervical strain with spasm. Patient will be started on Toradol in the emergency department, discharged with [place], Flexeril, and prednisone. Follow up with primary care this week for physical therapy. Vital Signs Vital signs: Initial Vital Signs Temperature 97.6 F 08/17/23 04:49 Temperature Source Temporal Artery Scan 08/17/23 04:49 Pulse Rate 64 08/17/23 04:49 Respiratory Rate 16 08/17/23 04:49 Blood Pressure 152/84 H 08/17/23 04:49 Blood Pressure Mean 106 H 08/17/23 04:49 Blood Pressure Position Sitting 08/17/23 04:49 Pulse Oximetry 98 08/17/23 04:49 Oxygen Delivery Method Room Air 08/17/23 04:49 Vital Signs Temperature 97.6 F 08/17/23 04:49 Pulse Rate 64 08/17/23 04:49 Respiratory Rate 16 08/17/23 04:49 Blood Pressure 152/84 H 08/17/23 04:49 Pulse Oximetry 98 08/17/23 04:49 Oxygen Delivery Method Room Air 08/17/23 04:49 Temperature 97.6 F 08/17/23 04:49 Pulse Rate 64 08/17/23 04:49 Respiratory Rate 16 08/17/23 04:49 Blood Pressure 152/84 H 08/17/23 04:49 Pulse Oximetry 98 08/17/23 04:49 Oxygen Delivery Method Room Air 08/17/23 04:49 Discharge Plan Discharge Clinical Impression: Cervical strain, Strain of cervical portion of left trapezius muscle Patient Disposition: Home, Self-Care Condition: Stable Instructions: Cervical Sprain (ED) Additional Instructions: Continue Tylenol and ibuprofen at home, take [place] as well. No more than 4000 mg Tylenol from all sources, Co[place]urn contains 325 mg. Warm packs and gentle massage Follow-up with your primary care doctor for physical therapy Activity Level: Activity as Tolerated Discharge Diet: Regular Prescriptions: No Action Robitussin Cough-Chest Kwesi DM 10-200 mg capsule 1 tab-cap PO ONCE PRN ascorbate calcium (vitamin C) PO tamsulosin 0.4 mg capsule 0.4 mg PO DAILY fexofenadine 180 mg tablet 180 mg PO DAILY levothyroxine 100 mcg tablet 100 mcg PO DAILY omeprazole 20 mg capsule,delayed release(DR/EC) 20 mg PO DAILY Follow Up/Referrals: Spenser Bales MD [Primary Care Provider] - Stand Alone Forms: MyHealth Info Instructions
[2023-08-17] MEDS: KETOROLAC 30 MG/ML inj IM (05:47)
== END 2023-08-17 06:04 | disposition home or self-care (01) ==
LOC: ED 05:42
PROVIDERS: Emergency Provider Family Medicine; PCP Family Medicine
DX: S16.1XXA Strain of muscle, fascia and tendon at neck level, initial encounter (principal)
CPT/HCPCS: 96372; 99283; 99284; J1885

== ENCOUNTER 2024-07-22 07:11 | Emergency (ER) | payer MEDICARE, BC, SELFPAY ==
--- OUTSIDE RECORDS SUMMARY | 2024-07-22 07:14 | XMS_ITS | Clinical Summary ---
Author Organization [facility] Address [address] [place] [address] Care Team Providers Care Appian Bpm Developer Name Role Phone Spenser Bales MD Primary Care Provider Allergies Active Allergy Reactions Criticality Noted Date Comments Antihistamines - Alkylamine *Unknown 01/09/20 10 Medications SUMAtriptan (IMITREX) 6 mg/0.5 mL crtgIndications:Mi graine without aura and without status migrainosus, not intractable INJECT 1 DOSE SUBCUTANEOUSLY AT 1ST SIGN OF HEADACHE REPEAT IN 1 HOUR NEEDED MAX. 12 MG PER 24 HOUR 3 Kit 5 05/19/20 16 Active fexofenadine (MAZIN) 180 mg tabletIndications: Allergy, sequela TAKE ONE TABLET BY MOUTH ONE TIME DAILY 90 Tablet 3 11/12/19 24 Active tamsulosin (FLOMAX) 0.4 mg capsule Take 1 Tablet by mouth once daily. 04/26/20 23 Active finasteride (PROSCAR) 5 mg tabletIndications: BPH without urinary obstruction Take 1 Tablet (5 mg) by mouth once daily in the morning. 90 Tablet 3 11/11/19 24 Active levothyroxine (SYNTHROID) 100 mcg tabletIndications: Other specified hypothyroidism Take 1 Tablet (100 mcg) by mouth once daily. 90 Tablet 3 11/11/19 24 Active omeprazole (PRILOSEC) 20 mg Delayed-Release capsuleIndications :GERD without esophagitis Take 1 Capsule (20 mg) by mouth once daily before a meal. 90 Capsule 3 11/11/19 24 Active Active Problems Problem Noted Date Diagnosed Date Overweight 08/27/2022 Prediabetes 05/02/2015 Mixed hyperlipidemia 05/02/2015 Adenomatous colon polyp 10/07/2012 Overview (11/07/2021): Colonoscopy 09/2012 polyps repeat in 5 years Colonoscopy 05/2018 multiple polyps, repeat in 3 years Colonoscopy 10/2021 TA,SSA, repeat in 5 years Allergy, unspecified not elsewhere classified Benign localized hyperplasia of prostate without urinary obstruction and other lower urinary tract symptoms (LUTS) 06/24/2010 L4-5 and L5-S1 Disk Herniations 09/12/2009 Gomez's esophagus 05/10/2009 Overview (11/07/2021): EGD 04/2009 Gomez's, repeat EGD in 3 years EGD 07/2012 Gomez's, repeat EGD in 3 years EGD 05/2016 Gomez's, repeat EGD in 3 years EGD 10/2021 Gomez's, repeat EGD in 3 years Migraine, unspecified, witho ut mention of intractable migraine without mention of status migrainosus 07/19/2007 Unspecified hypothyroidism 10/07/2006 Unspecified essential hypertension Resolved Problems Problem Noted Date Diagnosed Date Resolved Date Pseudopolyposis of colon wit hout complication, unspecified part of colon 08/27/2022 11/11/2023 Edema 07/26/2012 08/18/2021 Vitamin D deficiency 06/21/2012 022 Benign localized hyperplasia of prostate without urinary obstruction and other lower urinary tract symptoms (LUTS) 06/24/2010 06/24/2010 Major depressive disorder, r ecurrent episode, unspecified 08/03/2008 04/12/2018 Major depressive disorder, r ecurrent episode, unspecified 07/19/2007 04/12/2018 Major depressive disorder, r ecurrent episode, unspecified 10/13/2006 01/23/2020 Immunizations Name Administration Dates Next Due COVID-19 vaccine (fl3ur 30mcg/0.3mL) PF, MDV 03/07/2021,07/21/2020,06/30/2020 Influenza RIV4 (Age 18+ Year s) PRESERV FREE 03/17/2019 Influenza Virus, Unspecified 04/02/2016, 02/28/2015,02/29/2012,2010 Influenza, High-dose Quadriv alent Inactivated 03/13/2022,03/21/2021 Influenza, IIV3 (Age 6-35 mos) 02/06/2020 Influenza, IIV3 (Age >=3 years) 02/29/20 13,02/29/2012,02/23/2011,2009,04/08/2009 Influenza, IIV4 03/28/2014 Influenza, Inactivated AIIV4 (Age 65+ Years) Preserv Free 02/25/2023 Influenza, Inactivated IIV3 (Age 65+ Years) Preserv Free 04/12/2018,03/16/2017 Pneumococcal Conj 20-valent (Prevnar 20) 08/27/2022 Pneumococcal Poly,23-Valent (Pneumovax) 05/25/2017,01/17/2010 Pneumococcal conj 13-Valent (Prevnar 13) 05/19/2016 Td (Age >=7 Years) 05/31/2001 Tdap 06/12/2011 Family History Medical History Relation Name Comments Diabetes Maternal Grandfather Diabetes Maternal Grandmother Heart failure Mother Cancer-colon Neg. 1 Cancer-prostate Neg. 2 Heart Disease Neg. 3 Anesthesia Problem Neg. 4 Diabetes Paternal Grandfather Diabetes Paternal Grandmother Other Sister 1 d55 of muscular dystrophy, 3 sons w/ muscular dystrophy Other Sister 2 d69 of muscular dystrophy Relation Name Status Comments Maternal Grandfather Maternal Grandmother Mother Neg. 1 Neg. 2 Neg. 3 Neg. 4 Paternal Grandfather Paternal Grandmother Sister 1 Sister 2 Social History Tobacco Use Types Packs/Day Years Used Date Smoking Tobacco: Never Smokeless Tobacco: Never Tobacco Cessation:Counseling Given: No Alcohol Use Standard Drinks/Week Comments Yes 0 (1 standard drink = 0.6 oz pur e alcohol) occasional PHQ-2 Answer Date Recorded PHQ-2 TOTAL SCORE 0 08/27/2022 Social Connections Answer Date Recorded Do you often feel lonely or isolated from those around you? 0 11/11/2023 Financial Resource Strain Answer Date R ecorded Difficulty of Paying Living Expenses 3 11/11/2023 Difficulty of Paying Living Expenses Not on file 11/11/2023 Food Insecurity Answer Date Recorded Do you worry your food will run out before you are able to buy more? 1 11/11/2023 Transportation Needs Answer Date Record ed Does lack of transportation keep you from medica l appointments? 1 11/11/2023 Does lack of transportation keep you from work, meetings or getting things that you need? 1 11/11/2023 Housing Stability Answer Date Recorded What is your housing situation today? 1 11/11/2023 Utilities Answer Date Recorded Do you have trouble paying f or utilities (for example, heat, electricity, water, phone)? 1 11/11/2023 Sex and Gender Information Value Date Recorded Sex Assigned at Male 07/30/2021 7:22 PM MANAGER [employer]ANCE Legal Sex Male 6:13 AM MANAGER [employer]ANCE Gender Identity Male 07/30/2021 7:22 PM MANAGER [employer] COMPLIANCE Sexual Orientation Not on file Obstetrics History Last Filed Vital Signs Vital Sign Reading Time Taken Comments Blood Pressure 116/72 11/11/2023 4:03 PM CDT Pulse 98 11/11/2023 4:03 PM CDT Temperature 36.6 C (97.9 F) 08/27/2022 2:04 PM CDT Respiratory Rate 18 01/05/2017 4:08 PM CDT Oxygen Saturation 98% 11/11/2023 4:03 PM CDT Inhaled Oxygen Concentration - - Weight 98.9 kg (218 lb) 11/11/2023 4:03 PM CDT Height 179.2 cm (5' 10.55) 11/11/2023 4:03 PM C DT Body Mass Index 30.79 11/11/2023 4:03 PM CDT Plan of Treatment Health Maintenance Due Date Last Done Comments Zoster (shingles) series for age 50+ (1 of 2) 2001 Tetanus booster 06/12/2021 06/12/2011, 05/31/2001 Depression screening for age 12+ 09/01/2023 08/31/2022, 08/30/2022, 08/27/2022, Additional history exists COVID-19 vaccine series ( season) 2024 04/26/2022, 03/07/2021, 03/07/2021, Additional history exists Influenza for age 65+ 01/30/2024 02/25/2023 , 03/13/2022, 03/21/2021, Additional history exists Colonoscopy through age 75 11/06/202411/06, 11/06/2021, 11/06/2021, Additional history exists BMI (ht and wt on same day) for age 18+ 11/10/2024 11/11/2023, 08/27/2022, 08/18/2021, Additional history exists Medicare Wellness for age 65+ 11/11/2024, 08/27/2022, 08/18/2021, Additional history exists RSV vaccine for adults or (1 - 1-dose 75+ series) 2026 Lipids for age 45-75 11/10/2028 11/11/2023, 08/27/2022, 07/29/2021, Additional history exists Tdap Completed 06/12/2011 Hepatitis C screening for ag e 18-79 Completed 03/28/2014 Pneumococcal series for age 50+ Completed 08/27/2022, 05/25/2017, 05/19/2016, Additional history exists Procedures Procedure Name Priority Date/Time Associated Diagnosis Comments LIPID PANEL W REFLEX MEASURED LDL Routine 11/11/2023 4:43 PM CDT Mixed hyperlipidemia COLONOSCOPY SCREENING Routine 11/06/2021 7:37 AM CDT History of colon polyps ANTI HCV Routine 03/28/2014 10:18 AM CDT Need for hepatitis C screening test from Last 3 Months or Most Recently Relevant to Health Maintenance Results * LIPID PANEL W REFLEX MEASURED LDL (11/11/2023 4:43 PM CDT) CHOLESTEROL,TOTAL 187 100 - 199 mg/dL 11/12/2023 2:31 PM CDT [email or web address] Comment: Cholesterol, Total Reference Ranges Desirable <200 mg/dL Borderline 200-239 mg/dL High >=240 mg/dL TRIGLYCERIDES 126 <150 mg/dL 11/12/2023 2:31 PM CDT [facility] HDL CHOLESTEROL 48 >40 mg/dL 2:31 PM CDT [facility] NON-HDL CHOLESTEROL 139 <145 mg/dl 11/12/2023 2:31 PM CDT [facility] CHOL/HDL RATIO 3.90 <4.50 11/12/2023 2:31 PM CDT [facility] LDL CHOLESTEROL 114 <=130 mg/dL 11/12/2023 2:31 PM CDT [facility] VLDL CHOLESTEROL 25 <=30 mg/dL 11/12/2023 2:31 PM CDT [facility] PROVIDER ORDERED STATUS RANDOM 11/12/2023 2:31 PM CDT [facility] Blood BLOOD SPECIMEN / Unknown Venipuncture / Unknown 11/11/2023 4:43 PM CDT 11/11/2023 4:45 PM CDT Spenser Bales MD CHEMISTRY Final Result [facility] [address] [place] [address], [place] * COLONOSCOPY (11/06/2021 8:00 AM CDT) 11/06/2021 8:00 AM CDT Narrative Transcriptions Gilberto Long MD - 11/06/2021 9:44 AM CDT Patient Name: Sergio Reyes Procedure Date: 11/06/2021 Gender: Male Date of : 1950 Admit Type: Outpatient Procedure: Colonoscopy Proceduralist: Gilberto Long MD , Carlotta Ramirez, RN (Nurse) Referring MD: Spenser Bales Indications/Pre-Op Diagnosis: High risk colon cancer surveillance:Personal history of multiple (3 or more) adenomas,Last colonoscopy: May 2018 Medications: Fentanyl 100 micrograms IV, Midazolam 4 mgIV, (medications documented represent totaldosages for multiple procedures) Procedure Description: The patient had risks, benefits and alternatives explained to andgave informed consent. The patient had a stable cardiopulmonary status and judged an adequate candidate for conscious sedation. The Colonoscope was passed through the anus and advanced to thececum, identified by appendiceal orifice and ileocecal valve. Thecolonoscopy was performed without difficulty. The patient tolerated the procedure well. The quality of the bowel preparation was good. The ileocecal valve, appendiceal orifice, and rectum were photographed. Complications: No immediate complications. Estimated Blood Loss & Specimen: Estimated blood loss: none. Specimen collected - Yes and sent to Laboratory Findings: The perianal and digital rectal examinations were normal. A 3 mm polyp was found in the cecum. The polyp was semi-pedunculated. The polyp was removed with a cold snare. Resection and retrieval were complete. Four sessile polyps were found in the ascending colon. The polypswere 4 mm in size. These polyps were removed with a cold snare. Resectionwas complete, but the polyp tissue was only partially retrieved. The exam was otherwise without abnormality on direct and retroflexion views. Impressions/Post-Op Diagnosis: - One 3 mm polyp in the cecum, removed with a cold snare. Resectedand retrieved. - Four 4 mm polyps in the ascending colon, removed with a cold snare. Complete resection. Partial retrieval. - The examination was otherwise normal on direct and retroflexionviews. Recommendation: - Patient has a contact number available for emergencies. The signsand symptoms of potential delayed complications were discussed with the patient. Return to normal activities tomorrow. Written discharge instructions were provided to the patient. - Resume previous diet. - Continue present medications. - Await pathology results. - Repeat colonoscopy is recommended. The colonoscopy date will be determined after pathology results from today's exam become available for review. Moderate Sedation: Moderate (conscious) sedation was administered by the endoscopy nurse and supervised by the endoscopist. The following parameters were monitored: oxygen saturation, heart rate, respiratory rate, blood pressure, adequacy of pulmonary ventilation and reponse to care. Please refer to the patient's medical record flowsheets and nursing notes for moderate sedation details. Total physician intraservice time was 30 minutes. Gilberto Long MD 11/06/2021 9:44:10 AM This report has been signed electronically. Note Initiated On: 11/06/2021 8:00 AM Procedure Code(s): --- Professional --- 58802, Colonoscopy, flexible; with removalof tumor(s), polyp(s), or other lesion(s) bysnare technique Diagnosis Code(s): --- Professional --- Z86.010, Personal history of colonicpolyps D12.0, Benign neoplasm of cecum D12.2, Benign neoplasm of ascending colon CPT copyright 2020 [employer]. All rights reserved. The codes documented in this report are preliminary and upon cavalry officer reviewmay be revised to meet current compliance requirements. Scope In: 9:15:41 AM Scope Withdrawal Time 0 hours 12 minutes 36 seconds Scope Out: 9:32:01 AM us Gilberto Long MD PROCEDURE ORD Final Res ult * ANTI HCV (03/28/2014 10:18 AM CDT) HEPATITIS C ANTIBODY Non-Reacti ve Non-Reacti ve 03/28/2014 7:13 PM CDT [facility] Blood specimen (specimen) BLOOD SPECIMEN / Unknown Venipuncture / Unknown 03/28/2014 10:18 AM CDT 03/28/2014 10:18 AM CDT Narrative [facility] - 03/28/2014 7:13 PM CDT Antibodies to HCV not detected; does not exclude the possibility of exposure to HCV. us Spenser Bales MD SEND OUTS Final Result [facility] [address] [place] [address], [place] from Last 3 Months or Most Recently Relevant to Health Maintenance Insurance [employer] [place] BLUE MR PB ONLY MEDICARE PART B HB ONLY [facility] Advance Directives Documents on File Type Date Recorded Patient Rn Orthopaedic Expl anation POLST 06/09/2022 06/09/22 * Full Code (Latest Code Status on File) Date Activated Date Inactivated Comments 01/15/2010 7:24 PM 01/17/2010 5:15 PM * Full Code Date Activated Date Inactivated Comments 01/15/2010 2:06 PM 01/15/2010 7:24 PM Care Teams Appian Bpm Developer Relationship Specialty Start Date End Date Spenser Bales MD [address] [place] [address] PCP - General 06/14/06
--- OUTSIDE RECORDS SUMMARY | 2024-07-22 07:14 | XMS_ITS | Data Portability ---
Author Organization [facility], [facility] Address [address] [place] [address] Care Team Providers Care Sulfonation Equipment Operator Name Role Phone TRACY GARCIA Primary Care Provider Assessment No assessment recorded. Plan of Treatment Reminders Order Date Submit Date Provider Last Modified By Organization Details Last Modified Time Details Appointments None recorded . Lab PSA, serum or plasma 2023 024 ben [facility], [address], [place], [address], 4 09:36:50 PSA, serum or plasma 2022 023 [facility], [address], [place], [address], 3 10:12:56 urinalys is, dipstick 2022 023 wing [facility], [address], [place], [address], 3 16:43:45 Referral None recorded . Procedures cystosco py (PROC) 2023 024 bcubias Not available 4 15:39:39 electrom yography studies (EMG) of anal or urethral sphincte r, other than needle (PROC) 2022 023 montse Not available 3 07:32:35 complex cystomet rogram with voiding pressure studies (PROC) 2022 023 rebbert Not available 3 07:32:48 complex uroflowm etry (PROC) 2022 023 rebbert Not available 07:33:01 Surgeries transure thral resectio n of prostate (SURG) 2023 024 [email or web address] Not available 4 11:46:30 Imaging US, transrec elvin 2023 024 bcubias Not available 15:39:23 Medication Orders tamsulos in 0.4 mg capsule 2022 023 [id number], [address], [address], 12:18:06 Patient TargetsNo targets recorded. Patient Instructions Encounter Date Encounter Id Patient Instructions Last Modified By Organization Details Last Modified Time 09/01/2022 [id number] We reviewed that it is possible his PSA change is related to his recent retention/Mcmahon event at time of hip surgery, but it could also be a new or impending medicaid service coordinator diagnosis. I am in favor of rechecking it in 3 weeks or so, to see if it is continuing to come down, or if he does indeed need a biopsy. We'll also check a Urocuff that day, given his LUTS and history of TURP. With me after. Not available 09/01/2022 17:03:25 10/23/2022 [id number] PSA reassuring a nd consistent with our hypothesis, I'll check it again in Mar and would expect it to be even lower than today. His Urocuff would suggest some BPH regrowth after his very good GLL all those years ago. He may need a re-resection in the months/years ahead but we'll restart Flomax and check in in 6 months, sooner should LUTS worsen despite the med, or if he cannot tolerate it. Not available 10/23/2022 12:19:21 07/13/2023 [id number] Jong's PSA tren d is reassuring - he and I have agreed to defer additional imaging/biopsy at this time. His QOL continues to drop, however, despite meds. We both suspect an update to his chronic BPH management may be needed. I'm also concerned by his residual bladder squeeze - he's lost some strength there. Cystoscopy TRUS Might need re-resection. Not available 07/13/2023 10:26:26 09/14/2023 [id number] Jong has surgic al regrowth of his prostate, in a trilobar configuration with ball-valving median lobe that makes medical therapy often less effective, and he is seeing this now. I had a long discussion with the patient regarding his symptom severity and his findings from both his imaging and cystoscopy. We discussed continued medical therapy with alpha-blockade with or without the addition of finasteride 5 mg daily. We discussed expectations in terms of symptom improvement with combination medical therapy as outlined by the MTOPS trial. We then discussed minimally invasive procedures done under anesthesia in the office, notably the Rezum, and Urolift procedures. We discussed surgical outlet procedures done under anesthesia including bi-polar transurethral resection of prostate, transurethral laser vaporization of prostate and Aquablation, which involves high-pressure saline hydrodissection as its core technology for prostate removal. We discussed the technical aspects of these three procedures and that ultimately the goal is the same. We then discussed the associated risks including bleeding requiring transfusion, urinary tract infection, injury to the bladder/ureteral orifices/urinary sphincter, urethral stricture formation, anesthetic risks (CVA/DVT/PE/NH), postoperative urinary retention, and expected durability of treatment with anticipated retreatment rate. We discussed that Aquablation may reduce any worsening in sexual dysfunction post-operatively, but this data is not yet mature. He would like to proceed with Aquablation. His findings on cystoscopy, coupled with his Urocuff performance despite meds makes him a good candidate. Not available 09/14/2023 16:03:39 Reason for Referral None Reported. Results Created Date Observation Date Name Description Value Unit Range Abnormal Flag Note LastModifiedBy Organization Detail LastModifiedTime 09/02/19 23 09/01/2022 urina lysis , dipst ick Color-Status Yellow Not Available [facility] [address], [place], [address], 09/01/2022 16:40:19 09/02/19 23 09/01/2022 urina lysis , dipst ick Clarity-Stat us Clear Not Available [facility] [address], [place], [address], 09/01/2022 16:40:19 09/02/19 23 09/01/2022 urina lysis , dipst ick pH-Status 5.5 Not Available [facility] [address], [place], [address], 09/01/2022 16:40:19 09/02/19 23 09/01/2022 urina lysis , dipst ick Blood-Status Negati ve Not Available [facility] [address], [place], [address], 09/01/2022 16:40:19 10/24/19 23 10/23/2022 PSA, serum or plasm a PSA 2.7 ng/mL 0-4.0 Not Available [facility] [address], [place], [address], 10/23/2022 09:59:51 07/13/19 24 07/13/2023 PSA, serum or plasm a PSA 1.5 ng/ml 0-4.0 Not Available [facility] [address], [place], [address], 07/13/2023 09:31:06 10/09/19 23 10/08/2022 bladd er scan (PROC ) No observ ation record ed. prugel Not Available 2022 17:38:40 Result Notes None recorded. 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 78980362 Active 2009 Carmenza Chopra r null, [facility] 4 15:30:21 Overweight 607356926 Active 2022 Carmenzatrisha Chopra r null, [facility] 4 15:30:21 Benign prostatic hyperplasia without outflow obstruction 671269137 Active 2010 Carmenzatrisha ceballos, [facility] 4 15:30:21 Mixed hyperlipide ashkan 466736797 Active 2014 Carmenza ceballos, [facility] 4 15:30:21 Gomez's esophagus 952394166 Active 2008 Carmenzatrisha wheatley null, [facility] 4 15:30:21 Migraine 03852970 Active 2007 Carmenzatrisha ceballos, [facility] 4 15:30:21 Hypothyroid ism 01596007 Active 2006 Carmenzatrisha ceballos, [facility] 4 15:30:21 Adenomatous polyp of colon 128915371 Active 2012 Carmenza Chopra r null, [facility] 4 15:30:21 Allergic condition 584654180 Active 2012 Carmenzatrisha wheatley null, [facility] 4 15:30:21 Essential hypertensio n 60931777 [facility] 4 15:30:21 Prediabetes 370072534 Active 2014 Carmenzatrisha ceballos, [facility] 4 15:30:21 Lower urinary tract symptoms due to benign prostatic hypertrophy 7483345108546 1 Active 2023 Girma wheatley MD [address] [place] [address],[address], [place], [address], [facility] 16:01:55 Problem Notes None recorded. Procedures Surgical History Date Name Laterality Status Provider Name and Address Organization Details Recorded Time 09/14/19 24 TRUS- Volume size only completed Girma Corey MD [address] [place] [address],[address], [place], [address], [facility] 09/14/2023 16:01:49 09/14/19 24 CystoscopyMale completed Girma Corey MD [address] [place] [address],[address], [place], [address], [facility] 09/14/2023 16:01:06 07/13/19 24 COMPLEX VISIT completed Girma Corey MD [address] [place] [address],[address], [place], [address], [facility] 07/13/2023 10:26:32 07/13/19 24 Bladder Scan completed Carmenzatrisha Parra [facility] 07/13/2023 09:30:55 07/13/19 24 Blood Draw/RECONCILIATION MACHINE OPERATOR/PSA RESULTS completed Carmenza Parra [facility] 07/13/2023 09:30:59 10/24/19 23 Blood Draw/RECONCILIATION MACHINE OPERATOR/PSA RESULTS completed Christina Marin [facility] 10/23/2022 10:13:01 10/09/19 23 UroCuff completed Tonia Hargrove [facility] 10/08/2022 09:26:02 10/09/19 23 Bladder Scan completed Tonia Hargrove [facility] 10/08/2022 09:26:23 07/01/19 23 colonoscopy completed Carmenza Parra [facility] 07/13/2023 09:33:14 Hip arthroscopy dx completed Girma Corey MD [address] [place] [address],[address], [place], [address], [facility] 09/01/2022 16:07:41 procedure on back completed Girma Corey MD [address] [place] [address],[address], [place], [address], [facility] 09/01/2022 16:07:46 Shoulder joint surgery completed Girma Corey MD [address] [place] [address],[address], [place], [address], [facility] 09/01/2022 16:07:53 Imaging Results Imaging Date Name Status LastModified by Organiz ation Details LastModified Time 10/08/2022 bladder scan (PROC) completed prugel Information not available 10/08/2022 17:38:40 Procedure Notes None recorded. Medical Equipment None Reported. Allergies Allergen ID Allergen Name Allergen Category Reaction Reaction Severity Criticality Documentation Date Start Date Code Code System Note Provider Name and Address Organization Details Recorded Time 696778 Propylami ne derivativ e with histamine receptor antagonis t mechanism of action (substanc e) medicatio n Not available Not available Not available 07/13/20232009 76307 6788 SNOMED Other react ions and sever ities : '*Unk nown' . Not Available Not Available Not Available Medications Name Sig Start Date Stop Date Status Note LastModified by Organization Details LastModified Time cyclobenzap rine 10 mg tablet TAKE ONE TABLET BY MOUTH EVERY SIX HOURS NEEDED FOR MUSCLE SPASM* active Not Available Not Available No t Available tizanidine 4 mg tablet 4 mg every 8 hours by oral route. 2021 active Not Available Not Available Not Avai lable benzonatate 200 mg capsule TAKE 1 CAPSULE BY MOUTH 2 TO 3 TIMES PER DAY NEEDED FOR COUGH* active Not Available Not Available No t Available hydrocodone 5 mg-acetamin ophen 325 mg tablet TAKE ONE TABLET BY MOUTH EVERY SIX HOURS NEEDED FOR PAIN* active Not Available Not Available No t Available prednisone 20 mg tablet TAKE TWO TABLETS BY MOUTH DAILY WITH FOOD FOR 5 DAYS* active Not Available Not Available No t Available fexofenadin e 180 mg tablet TAKE ONE TABLET BY MOUTH ONE TIME DAILY* active Not Available Not Available No t Available acetaminoph en 500 mg tablet take 1-2 tablets by mouth every 6 hours As Needed for pain, Max Daily Dose: 4000mg per day active Not Available Not Available No t Available levothyroxi ne 100 mcg tablet TAKE ONE TABLET BY MOUTH ONE TIME DAILY* active Not Available Not Available No t Available tamsulosin 0.4 mg capsule TAKE ONE CAPSULE BY MOUTH ONE TIME DAILY 2022 active Not Available Not Available Not Avai lable cephalexin 500 mg capsule TAKE 1 CAPSULE BY MOUTH TWICE DAILY WITH FOOD, WATER, AND SUPPLEMEN T WITH A PROBIOTIC . 09/01 completed Not Available Not Available Not Available omeprazole 20 mg capsule,del ayed release TAKE ONE CAPSULE BY MOUTH ONE TIME DAILY BEFORE A MEAL.* active Not Available Not Available No t Available mupirocin 2 % topical ointment APPLY TO REMOVAL SITE 1-2X DAILY UNTIL WELL HEALED AFTER STERI STRIPS FALL OFF 09/01 completed Not Available Not Available Not Available oxycodone 5 mg tablet take 1/2-1 tablet by mouth every 4-6 hours As Needed for Pain. Max Daily Dose: 6 tabs per day; Minimize use and Discontin ue as soon as possi 09/01 completed Not Available Not Available Not Available sumatriptan 6 mg/0.5 mL subcutaneou s pen injector 2015 active Not Available Not Available Not Avai lable Xarelto 10 mg tablet TAKE ONE TABLET BY MOUTH ONE TIME DAILY for DVT prophylax is for 30 days 09/01 completed Not Available Not Available Not Available Paxlovid 300 mg (150 mg x 2)-100 mg tablets in a dose pack take TWO 150 mg tablets of nirmatrel vir with ONE 100 mg tablet of ritonavir by mouth twice daily for 5 days* 07/13 completed Not Available Not Available Not Available Vitals Date Recorded Body height Body mass index (BMI) Body weight Provider Name and Address Organization Details Last Updated DateTime 09/01/2022 177.8 cm 30 kg/m2 27072.81 g Girma Corey MD [address],[facility] [address], [place], [address], [facility] 09/01/2022 16:06:14 Date Recorded Body height Provider Name an d Address Organization Details Last Updated DateTime 10/08/2022 177.8 cm Tonia Hargrove [facility] 10/08/2022 09:21:53 Date Recorded Body height Body mass index (BMI) Body weight Provider Name and Address Organization Details Last Updated DateTime 10/23/2022 177.8 cm 30 kg/m2 42827.81 g Tonia Hargrove [facility] 10/23/2022 09:57:08 Date Recorded Body height Body mass index (BMI) Body weight Provider Name and Address Organization Details Last Updated DateTime 07/13/2023 177.8 cm 30 kg/m2 29360.81 g Carmenza Websterminnie [facility] 07/13/2023 09:32:05 Date Recorded Body height Body mass index (BMI) Body weight Provider Name and Address Organization Details Last Updated DateTime 09/14/2023 177.8 cm 30 kg/m2 54537.81 g Carmenza Websterminnie [facility] 09/14/2023 15:30:36 Social History Question Answer Notes LastModified by Organizat ion Details LastModified Time Tobacco Smoking Status Never Smoker Giram Corey MD [address] [place] [address],[facility] [address], [place], [address], [facility] 09/01/2022 16:07:27 What Is Your Level Of Alcohol Consumption? Occasional Information not available 09/01/2022 What Is Your Level Of Caffeine Consumption? None Information not available 09/01/2022 What Was The Date Of Your Most Recent Tobacco Screening? 09/14/2023 [email or web address] Information not available 09/14/2023 Sex: Unknown Functional Status None recorded. Mental Status None recorded. Family History Nothing Reported. Medical History Condition Response Other N High Blood Pressure N Kidney Stones N Lung Disease N Depression N GERD/Acid Reflux Y Diabetes N Sexually Transmitted Infection N Bleeding Disorder N Cancer N High Cholesterol N Heart Disease N Immunizations Vaccine Type Date Status Note Provider Nam e and Address Organization Details Recorded Time Influenza, adjuvanted, trivalent, PF 7 completed Carmenza ceballos [facility] 09/14/2023 15:30:26 Influenza, adjuvanted, trivalent, PF 8 completed Carmenza ceballos [facility] 09/14/2023 15:30:26 Influenza, recombinant, quadrivalent, PF 9 completed Carmenza ceballos [facility] 09/14/2023 15:30:26 Influenza, high-dose, quadrivalent, PF 2 completed Carmenza ceballos, [facility] 09/14/2023 15:30:26 Influenza, high-dose, quadrivalent, PF 1 completed Carmenza Lovettauer null, [facility] 09/14/2023 15:30:26 COVID-19, mRNA, LNP-S, PF, 30 mcg/0.3 mL dose 1 completed Carmenza Parra null, [facility] 09/14/2023 15:30:26 COVID-19, mRNA, LNP-S, PF, 30 mcg/0.3 mL dose 1 completed Carmenza Lovettauer null, [facility] 09/14/2023 15:30:26 COVID-19, mRNA, LNP-S, PF, 30 mcg/0.3 mL dose 1 completed Carmenza ceballos, [facility] 09/14/2023 15:30:26 Pneumococcal conjugate PCV20, polysaccharide [id number] conjugate, adjuvant, PF 3 completed Carmenza ceballos, [facility] 09/14/2023 15:30:26 pneumococcal polysaccharide PPV23 0 completed Carmenza ceballos, [facility] 09/14/2023 15:30:26 pneumococcal polysaccharide PPV23 7 completed Carmenza ceballos, [facility] 09/14/2023 15:30:26 influenza, unspecified formulation 1 completed Carmenza ceballos, [facility] 09/14/2023 15:30:26 influenza, unspecified formulation 2 completed Carmenza Parra null, [facility] 09/14/2023 15:30:26 influenza, unspecified formulation 5 completed Carmenza Parra null, [facility] 09/14/2023 15:30:26 influenza, unspecified formulation 6 completed Carmenza ceballos, [facility] 09/14/2023 15:30:26 Tdap 2 completed Carmenza ceballos, [facility] 09/14/2023 15:30:26 Pneumococcal conjugate PCV 13 6 completed [facility] 09/14/2023 15:30:26 Influenza, split virus, trivalent, preservative 1 completed [facility] 09/14/2023 15:30:26 Influenza, split virus, trivalent, preservative 2 completed [facility] 09/14/2023 15:30:27 Influenza, split virus, trivalent, preservative 3 completed [facility] 09/14/2023 15:30:27 Influenza, split virus, trivalent, preservative 0 completed [facility] 09/14/2023 15:30:27 Influenza, split virus, trivalent, preservative 9 completed [facility] Eleanorminnie [facility] 09/14/2023 15:30:27 Influenza, split virus, trivalent, PF 0 completed [facility] 09/14/2023 15:30:27 Td (adult), 2 Lf tetanus toxoid, preservative free, adsorbed 2 completed [facility] 09/14/2023 15:30:27 Influenza, split virus, quadrivalent, PF 4 completed [facility] 09/14/[facility]23 15:30:27 Past Encounters Encounter ID Performer Location Encounter Start Date Encounter Closed Date Diagnosis/Indication Diagnosis SNOMED-CT Code Diagnosis ICD10 Code Diagnosis Note [id number] Girma Corey MD [facility] [address] [place] [address] 09/01/2022 15:55:29 09/04/2022 17:35:30 Increased frequency of urination 024090909 R35.0 Prostate s pecific antigen above reference range 755005606 R97.20 Lower urin darren tract symptoms due to benign prostatic hypertrophy 0642307861 9101 N40.1 [id number] Girma Corey MD [facility] [address] [place] [address] 10/08/2022 08:37:57 10/13/2022 17:36:23 Lower urinary tract symptoms due to benign prostatic hypertrophy 1429256873 9101 N40.1 [id number] Girma Corey MD [facility] [address] [place] [address] 10/23/2022 09:38:25 11/03/2022 07:38:31 Lower urinary tract symptoms due to benign prostatic hypertrophy 2858057729 9101 N40.1 Prostate s pecific antigen above reference range 977806053 R97.20 [id number] Girma Corey MD [facility] [address] [place] [address] 07/13/2023 09:03:08 07/23/2023 18:43:56 Lower urinary tract symptoms due to benign prostatic hypertrophy 1988978378 9101 N40.1 Incomplete emptying of urinary bladder 836736999 R39.14 [id number] Girma Corey MD [facility] [address] [place] [address] 09/14/2023 14:42:01 09/15/2023 15:25:05 Lower urinary tract symptoms due to benign prostatic hypertrophy 8824952502 9101 N40.1 Health Concerns Section Related Observation LastModified by Organization Detai ls LastModified Time None Recorded Concern Status LastModified by Organization Details LastModified Time None Recorded Advance Directives Directive None Recorded Payers Encounter Date Sequence Insurance Name Policy Number Policy Moreno Covered Member ID Moreno Member ID Guarantor Name 09/01/2022 2 [facility] [id number] Sergio Reyes [id number] Sergio Debra Eric 09/01/2022 1 [place] [employer] Sergio Debra Reyes [id number] Sergio Debra Reic 10/08/2022 2 [facility] [id number] Sergio Floreson [id number] Sergio Debra Eric 10/08/2022 1 [place] [employer] Sergio Floreson [id number] Sergio Reyes 10/23/2022 2 [place] [id number] Sergio Floreson [id number] Sergio Floreson 10/23/2022 1 [place] [facility] Sergio Reyes [id number] 2 Sergio Floreson 07/13/2023 2 [place] [id number] Sergio Reyes [id number] Sergio Richardson Eric 07/13/2023 1 [place] [facility] Sergio Reyes [id number] 2 Sergio Floreson 09/14/2023 2 [place] [id number] Sergio Reyes [id number] Sergio Floreson 09/14/2023 1 [place] [facility] Sergio Reyes [id number] 2 Sergio Reyes Notes Date Note Type Note Provider Name and Address Organization Details Recorded Time 09/01/2022 text/html 72M presents for elevated PSA. Last week it was 12.7, after 8+ years of being in the 1-2 range. Had hip surgery in May, requiring difficult Mcmahon placement, instrumentation, and has been rehabbing since. History of BPH/LUTS, had GLL TURP (T[facility]) at [facility] 10+ years ago. Has done well until recently, having return of intermittency, weak stream, frequency. UA without infection, emptying well. Girma Corey MD [address], [place], [address], [facility] 09/01/2022 17:03:49 10/23/2022 text/html 72M presents for follow up BPH/LUTS, Urocuff, elevated PSA. Came to me early Aug 2022 with PSA 12.7, after 8+ years of being in the 1-2 range. Today: 2.7. Had hip surgery in May, requiring difficult Mcmahon placement, instrumentation, and has been rehabbing since. History of BPH/LUTS, had GLL TURP (Torts) at [facility] 10+ years ago. Has done well until recently, having return of intermittency, weak stream, frequency.UA without infection, emptying well. Urocuff shows low flow, reduced pressure, borderline LPLF, incomplete emptying. Girma Corey MD [address], [place], [address], [facility] 10/23/2022 12:19:29 07/13/2023 text/html 73M presents for follow up BPH/LUTS, elevated PSA.Came to id early Aug 2022 with PSA 12.7, after 8+ years of being in the 1-2 range. September 2022: 2.7. Today: 1.5 (his normal for 15 years).Had hip surgery in May, requiring difficult Cmmahon placement, instrumentation, and has been rehabbing since. History of BPH/LUTS, had GLL TURP (Torts) at [facility] 10+ years ago. Has done well until recently, having return of intermittency, weak stream, frequency. His QOL continues to drop despite Flomax.UA without infection, emptying well.Urocuff showed low flow, reduced pressure, borderline LPLF, incomplete emptying. Girma Corey MD [address], [place], [address], [facility] 07/13/2023 10:26:43 09/14/2023 text/html 73M presents for follow up BPH/LUTS, elevated PSA. IPSS 15, mixed with Flomax on board.Came to id early Aug 2022 with PSA 12.7, after 8+ years of being in the 1-2 range. September 2022: 2.7. In 2023: 1.5 (his normal for 15 years).Had hip surgery in May, requiring difficult Mcmahon placement, instrumentation, and has been rehabbing since. History of BPH/LUTS, had GLL TURP ([facility]) at [facility] 10+ years ago. Has done well until recently, having return of intermittency, weak stream, frequency. His QOL continues to drop despite Flomax.UA without infection, emptying well.Urocuff showed low flow, reduced pressure, borderline LPLF, incomplete emptying. Girma Corey MD [address], [place], [address], [facility] 09/14/2023 16:03:52
[2024-07-22 07:16] VITALS: BP 153/86; PULSE 71; RESP 18; TEMP 36.3; O2SAT 98; BMI 27.8
--- NOTE | 2024-07-22 07:37 | ED_ITS ---
HPI - General Adult General Chief complaint: Neck Injury/Pain Stated complaint: neck pain Time Seen by Provider: 07/22/24 07:22 Source: patient Mode of arrival: ambulatory Limitations: no limitations History of Present Illness HPI narrative: 74-year-old male presents to the emergency department for evaluation of neck pain, bilateral sternocleidomastoid area. No trauma or injury. No radiculopathy. No weakness, numbness or tingling in the arms or chest. Similar symptoms a year ago and about a year before that though it does not correspond with the specific date. ED note from last July reviewed. Patient reports the pain started at about 2:00 a.m. this morning. He tried taking 200 mg of ibuprofen and not surprisingly did not have any relief of symptoms. Has not tried Tylenol. Did not attempt to seek care at urgent care or other type of typical environment before presenting to emergency department. No fever. No chest pain, no shortness of breath. No difficulty swallowing. No history of meningitis or significant head injury. Not anticoagulated. No recent chiropractic manipulation. Past medical history notable for GERD, hypothyroidism and BPH. Home meds are Flomax, omeprazole and levothyroxine. Denies allergies. Nonsmoker. ROS is notable for the musculoskeletal symptoms as above only, otherwise denies times 12 systems. Related Data Home Medications ?Medication ?Instructions ?Recorded ?Confirmed fexofenadine 180 mg tablet 180 mg PO DAILY 06/01/22 07/22/24 levothyroxine 100 mcg tablet 100 mcg PO DAILY 06/01/22 07/22/24 omeprazole 20 mg capsule,delayed 20 mg PO DAILY 06/01/22 07/22/24 release ascorbate calcium (vitamin C) PO 04/10/23 04/10/23 tamsulosin 0.4 mg capsule 0.4 mg PO DAILY 08/17/23 07/22/24 Previous Rx's ?Medication ?Instructions ?Recorded cyclobenzaprine 10 mg tablet 10 mg PO BID PRN muscle spasm #14 07/22/24 tabs prednisone 20 mg tablet 20 mg PO BID #10 tabs 07/22/24 tramadol 50 mg tablet 50 mg PO Q6H PRN pain #10 tabs 07/22/24 Allergies Allergy/AdvReac Type Severity Reaction Status Date / Time No Known Drug Allergies Allergy Verified 07/22/24 07:20 PFSH [facility] Medical History Muscle spasm ?M62.838 - Other muscle spasm (ICD-10) Gomez's esophagus ?K22.70 - Gomez's esophagus without dysplasia (ICD-10) Gastroesophageal reflux disease ?K21.9 - Gastro-esophageal reflux disease without esophagitis (ICD-10) Mixed hyperlipidemia ?E78.2 - Mixed hyperlipidemia (ICD-10) Prediabetes ?R73.03 - Prediabetes (ICD-10) Adenomatous colon polyp ?D12.6 - Benign neoplasm of colon, unspecified (ICD-10) Migraine ?G43.909 - Migraine, unspecified, not intractable, without status migrainosus (ICD-10) Seasonal allergies ?J30.2 - Other seasonal allergic rhinitis (ICD-10) Herniation of intervertebral disc between L5 and S1 ?M51.27 - Other intervertebral disc displacement, lumbosacral region (ICD-10) Herniation of intervertebral disc between L4 and L5 ?M51.26 - Other intervertebral disc displacement, lumbar region (ICD-10) Benign prostatic hyperplasia ?N40.0 - Benign prostatic hyperplasia without lower urinary tract symptoms (ICD-10) Essential hypertension ?I10 - Essential (primary) hypertension (ICD-10) Primary hypothyroidism ?E03.9 - Hypothyroidism, unspecified (ICD-10) Surgical History Status post open reduction and internal fixation (ORIF) of fracture (06/02/22) ?Z98.890 - Other specified postprocedural states (ICD-10) ?Z87.81 - Personal history of (healed) traumatic fracture (ICD-10) Status post Mohs surgery ?Z98.890 - Other specified postprocedural states (ICD-10) Status post right rotator cuff repair (09/23/05) ?Z98.890 - Other specified postprocedural states (ICD-10) Status post laminectomy ?Z98.890 - Other specified postprocedural states (ICD-10) Status post transurethral resection of prostate ?Z90.79 - Acquired absence of other genital organ(s) (ICD-10) Status post bilateral cataract extraction ?Z98.41 - Cataract extraction status, right eye (ICD-10) ?Z98.42 - Cataract extraction status, left eye (ICD-10) Status post appendectomy ?Z90.49 - Acquired absence of other specified parts of digestive tract (ICD- 10) History of left inguinal hernia repair ?Z98.890 - Other specified postprocedural states (ICD-10) ?Z87.19 - Personal history of other diseases of the digestive system (ICD-10) History of umbilical hernia repair ?Z98.890 - Other specified postprocedural states (ICD-10) ?Z87.19 - Personal history of other diseases of the digestive system (ICD-10) History of esophagogastroduodenoscopy (EGD) ?Z98.890 - Other specified postprocedural states (ICD-10) History of colonoscopy ?Z98.890 - Other specified postprocedural states (ICD-10) Family History Mother CHF (congestive heart failure) Grandfather Diabetes Grandmother Diabetes Social History Highest level of school completed/degree received: some college, no degree Smoking Status: Never smoker Do you use any of these nicotine containing products: None Second hand tobacco smoke exposure: No How often do you have a drink containing alcohol: 2-4 times a month Alcohol type: hard liquor How many standard drinks containing alcohol do you have on a typical day: 1 or 2 How often do you have six or more drinks on one occasion: Never AUDIT-C Alcohol total score: 2 Non-prescribed substance use: denies use Caffeine: No service: No Exam Const: Vital Signs, click to edit/add: Vital Signs - 24 hr 07/22/24 07:16 Temperature 97.3 F L Pulse Rate [Right Pulse Oximeter] 71 Respiratory Rate 18 Blood Pressure [Ri ght Upper Arm] 153/86 H Pulse Oximetry 98 Oxygen Delivery Me thod Room Air Documenting provider has reviewed patient's vital signs: yes Common normals: no apparent distress General appearance: cooperative, comfortable and well kempt HENMT: Common normals: normocephalic, moist oral mucous membranes and oropharynx normal Head and scalp: normocephalic Face and sinus: normal facial exam Mouth: oral and palatal mucosa normal Eye: Common normals: conjunctivae normal General eye: normal appearance of both eyes Conjunctiva: conjunctiva(e) normal Neck & C-Spine: Common normals: full ROM and no lymphadenopathy General: normal visual inspection Cervical spine: cervical ROM normal and paracervical muscle tenderness; no cervical spine tenderness and no step off deformity Other: Pain with palpation of lateral cervical muscles only. No point bony tenderness, step-offs or deformity. Negative spondylosis testing. Resp: Common normals: normal respiratory effort, no use of accessory muscles and clear to auscultation bilaterally Effort & inspection: able to speak in complete sentences Auscultation: clear to auscultation bilaterally Cardio: Common normals: regular rate, regular rhythm, S1 normal heart sound, S2 normal heart sound and no murmurs Rate: regular rate Rhythm: regular rhythm Heart sounds: S1 normal and S2 normal Extremity: Other: Normal strength, range of motion and sensation in both upper extremities. Symmetric. 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 No evidence of radiculopathy, injury or trauma, spinal cord emergency or nerve impingement. Counseled patient on findings. Alarm symptoms reviewed would warrant ED presentation including fevers, neurological impairment, etc.. He verbalizes understanding and agreement. Will start prednisone 20 mg b.i.d. x5 days, 1st dose in ED. Will give 30 of IM Toradol, 1000 of Tylenol and 50 of tramadol. Prescriptions for 5 days of prednisone, limited supplies of tramadol and cyclobenzaprine sent to pharmacy. Counseled on proper dosing of [id number] ibuprofen and Tylenol. Patient should follow- up with his primary care provider if symptoms are not improving in 5 days, ED if alarm symptoms. Written instructions provided, all questions answered. No indications for imaging based on presentation and exam. Vital Signs Vital signs: Initial Vital Signs Temperature 97.3 F L 07/22/24 07:16 Temperature Source Temporal Artery Scan 07/22/24 07:16 Pulse Rate 71 07/22/24 07:16 Pulse Rhythm Regular 07/22/24 07:16 Pulse Strength 3+ Normal 07/22/24 07:16 Respiratory Rate 18 07/22/24 07:16 Blood Pressure 153/86 H 07/22/24 07:16 Blood Pressure Mean 108 H 07/22/24 07:16 Blood Pressure Position Sitting 07/22/24 07:16 Pulse Oximetry 98 07/22/24 07:16 Oxygen Delivery Method Room Air 07/22/24 07:16 Vital Signs Temperature 97.3 F L 07/22/24 07:16 Pulse Rate 71 07/22/24 07:16 Respiratory Rate 18 07/22/24 07:16 Blood Pressure 153/86 H 07/22/24 07:16 Pulse Oximetry 98 07/22/24 07:16 Oxygen Delivery Method Room Air 07/22/24 07:16 Temperature 97.3 F L 07/22/24 07:16 Pulse Rate 71 07/22/24 07:16 Respiratory Rate 18 07/22/24 07:16 Blood Pressure 153/86 H 07/22/24 07:16 Pulse Oximetry 98 07/22/24 07:16 Oxygen Delivery Method Room Air 07/22/24 07:16 Discharge Plan Discharge Clinical Impression: Cervical myofascial strain Patient Disposition: Home, Self-Care Instructions: Cervical Strain (DC) Additional Instructions: As we discussed, there does not seem to be any severe injury in the neck. This seems like a flare up of arthritis and unfortunately is likely to happen again. I would recommend that if your symptoms do not improve significantly within a few days on the medications I will prescribe, that you make a follow-up with her primary care doctor to better discuss a long-term plan. Typically, you should come to an emergency room if you have these symptoms if there was a new sudden injury or trauma, neck stiffness and pain accompanied by a high fever, or inability to move your arms. To calm down the inflammation, the most important medication is prednisone. He will take 1 pill 2 times a day for total of 5 days. Try to take this 1st thing in the morning and early evening. Do not take within 4 hours of bedtime as it can cause insomnia. Try to take it with food to reduce the chance of stomach upset. For pain, please take proper adult doses of [id number] medications. I recommend Tylenol 1000 mg every 6 hours. You may also use ibuprofen 600 mg up to every 6 hours. Please make sure that your max Vazquez out these medications before dipping into more dangerous medications. Will also give you prescription for tramadol which is a narcotic medication to use if the pain remains severe. Remember that the should only be used if you have reached a maximum doses of Tylenol and ibuprofen and the pain is still severe. I will also give a prescription for muscle relaxant, cyclobenzaprine. This will cause drowsiness and is often best used at bedtime. It may be use during the day if the pain is severe also. You would benefit from a course of physical therapy, you may arrange this for yourself or contact your primary care provider if you need a referral. For most, symptoms improve in 3-5 days. If not, please make a follow-up appointment with your primary care provider. Activity Level: Activity as Tolerated Discharge Diet: Regular Prescriptions: New prednisone 20 mg tablet 20 mg PO BID Qty: 10 0RF cyclobenzaprine 10 mg tablet 10 mg PO BID PRN (Reason: muscle spasm) Qty: 14 0RF Rx Instructions: May cause drowsiness, try to reserve for nighttime use only. Consider taking just a half a pill if too much sedation tramadol 50 mg tablet 50 mg PO Q6H PRN (Reason: pain) Qty: 10 0RF Rx Instructions: Use sparingly, only if pain not relieved by adequate doses of Tylenol and ibuprofen No Action ascorbate calcium (vitamin C) PO tamsulosin 0.4 mg capsule 0.4 mg PO DAILY fexofenadine 180 mg tablet 180 mg PO DAILY levothyroxine 100 mcg tablet 100 mcg PO DAILY omeprazole 20 mg capsule,delayed release(DR/EC) 20 mg PO DAILY Follow Up/Referrals: Spenser Bales MD [Primary Care Provider] - Stand Alone Forms: [employer] Info Instructions
[2024-07-22] MEDS: predniSONE 10 MG TABLET 20 MG PO (07:38)
[2024-07-22] MEDS: TRAMADOL HCL 50 MG TABLET PO (07:38)
[2024-07-22] MEDS: ACETAMINOPHEN 500 MG TABLET 1000 MG PO (07:38)
[2024-07-22] MEDS: KETOROLAC 30 MG/ML inj IM (07:39)
--- OUTSIDE RECORDS SUMMARY | 2024-07-22 07:42 | XMS_ITS | Clinical Summary ---
Author Organization [facility] Address [address] [place] [id number] Care Team Providers Care Embossograph Operator Name Role Phone Spenser Bales MD Primary [...] Name Administration Dates Next Due COVID-19 vaccine ([employer] 30mcg/0.3mL) PF, MDV 03/07/2021,07/21/2020,06/30/2020 Influenza RIV4 (Age [...] Sex Assigned at Male 07/30/2021 7:22 PM DIABETES PHYSICIAN Legal Sex Male 6:13 AM DIABETES PHYSICIAN Gender Identity Male 07/30/2021 7:22 PM DIABETES PHYSICIAN Sexual Orientation Not on file Obstetrics History [...] - 199 mg/dL 11/12/2023 2:31 PM CDT [facility] Comment: Cholesterol, Total Reference Ranges Desirable <200 mg/dL Borderline 200-239 mg/dL High >=240 mg/dL TRIGLYCERIDES 126 <150 mg/dL 11/12/2023 2:31 PM CDT [facility] [employer] [facility] HDL CHOLESTEROL 48 >40 mg/dL 2:31 PM CDT [facility] NON-HDL CHOLESTEROL 139 <145 mg/dl 11/12/2023 2:31 PM CDT [facility] CHOL/HDL RATIO 3.90 <4.50 11/12/2023 2:31 PM CDT [facility] LDL CHOLESTEROL 114 <=130 mg/dL 11/12/2023 2:31 PM CDT [facility] VLDL CHOLESTEROL 25 <=30 mg/dL 11/12/2023 2:31 PM CDT [facility] PROVIDER ORDERED STATUS RANDOM 11/12/2023 2:31 PM CDT [facility] Blood BLOOD SPECIMEN / Unknown Venipuncture / Unknown 11/11/2023 4:43 PM CDT 11/11/2023 4:45 PM CDT Spenser Bales MD CHEMISTRY Final Result [facility] [address] [place] [address], [place] * COLONOSCOPY (11/06/2021 8:00 AM CDT) [...] 8:00 AM Procedure Code(s): --- Professional --- 83583, Colonoscopy, flexible; with removalof tumor(s), polyp(s), or other lesion(s) bysnare technique Diagnosis Code(s): --- Professional --- Z86.010, Personal history of colonicpolyps D12.0, Benign neoplasm of cecum D12.2, Benign neoplasm of ascending colon CPT copyright 2020 [employer]. All rights reserved. The codes documented in this report are preliminary and upon brazer helper induction reviewmay be revised to meet current compliance requirements. Scope In: 9:15:41 AM Scope Withdrawal Time 0 hours 12 minutes 36 seconds Scope Out: 9:32:01 AM us Gilberto Long MD PROCEDURE ORD Final Res ult * ANTI HCV (03/28/2014 10:18 AM CDT) HEPATITIS C ANTIBODY Non-Reacti ve Non-Reacti ve 03/28/2014 7:13 PM CDT [facility] Blood specimen (specimen) BLOOD SPECIMEN / Unknown Venipuncture / Unknown 03/28/2014 10:18 AM CDT 03/28/2014 10:18 AM CDT Narrative [facility] - 03/28/2014 7:13 PM CDT Antibodies to HCV not detected; does not exclude the possibility of exposure to HCV. us Spenser Bales MD SEND OUTS Final Result [facility] [address] [place] [address], [place] from Last 3 Months or Most Recently Relevant to Health Maintenance Insurance [employer] [employer] [place] ONLY MEDICARE PART B HB ONLY [facility] Advance Directives Documents on File Type Date Recorded Patient Straightedge Man Expl anation POLST 06/09/2022 06/09/22 * Full Code (Latest Code Status on File) Date Activated Date Inactivated Comments 01/15/2010 7:24 PM 01/17/2010 5:15 PM * Full Code Date Activated Date Inactivated Comments 01/15/2010 2:06 PM 01/15/2010 7:24 PM Care Teams Embossograph Operator Relationship Specialty Start Date End Date Spenser Bales MD [address] [place] [address] PCP - General 06/14/06
== END 2024-07-22 08:01 | disposition home or self-care (01) ==
LOC: ED 07:40
PROVIDERS: Emergency Provider Family Medicine; PCP Family Medicine
DX: S16.1XXA Strain of muscle, fascia and tendon at neck level, initial encounter (principal)
CPT/HCPCS: 96372; 99284; A9270; J1885; J7512